=== PATIENT | male | born 1955 | race African-American/Black ===

== ENCOUNTER 2017-07-27 20:39 | Inpatient (IN) | payer MEDICARE, MEDICAID ==
[~2017-07-27] VITALS: Ht 185.4 cm; Wt 90.9 kg
[2017-07-27] MEDS: Nitroglycerin Subl 0.4mg tab SL PRN ×3 (21:02→21:17)
[2017-07-27] MEDS ORDERED: FUROSEMIDE40 MG ORAL (21:09)
[2017-07-27] MEDS ORDERED: HYDRALAZINE HC100 MG ORAL (21:09)
[2017-07-27] MEDS ORDERED: ATORVASTATIN CA80 MG ORAL (21:09)
[2017-07-27] MEDS ORDERED: DIOVAN80 MG ORAL (21:09)
[2017-07-27] MEDS ORDERED: NEPHROVITE1 TAB ORAL (21:09)
[2017-07-27] MEDS ORDERED: SENNA8.6 M2 PO (21:09)
[2017-07-27] MEDS ORDERED: HUMULIN R100 UNIT/1 SUBQ (21:09)
[2017-07-27] MEDS ORDERED: MINERAL OIL EN133 ML RC (21:09)
[2017-07-27] MEDS ORDERED: NORCO 5-325 TA1 EACH ORAL (21:09)
[2017-07-27] MEDS ORDERED: RENVELA0.8 GM ORAL (21:09)
[2017-07-27] MEDS ORDERED: NORVASC10 MG ORAL (21:09)
[2017-07-27] MEDS ORDERED: DULCOLAX10 MG RC (21:09)
[2017-07-27] MEDS ORDERED: ACETAMINOPHEN325 M1 ORAL (21:09)
[2017-07-27] MEDS ORDERED: METOPROLOL TART50 MG ORAL (21:09)
[2017-07-27] MEDS ORDERED: VITAMIN D400 INTLU ORAL (21:09)
[2017-07-27] MEDS ORDERED: SORBITOL 70%30 ML PO (21:09)
[2017-07-27 21:18] VITALS: BP 165/93
[2017-07-27 21:30] LABS: BASOPHILS % (AUTO) 0.9 % (0.0-2.0); EOSINOPHILS % (AUTO) 0.3 % (0.0-3.0); HEMATOCRIT 25.5 % (42.0-52.0); HEMOGLOBIN 8.1 G/DL (14.2-18.0); MEAN CORPUSCULAR VOLUME 88 FL (80-99); MONOCYTES % (AUTO) 5.3 % (1.0-10.0); NEUTROPHILS % (AUTO) 82.5 % (45.0-75.0); PLATELET COUNT 305 K/UL (150-450); RED BLOOD COUNT 2.88 M/UL (4.70-6.10); RED CELL DISTRIBUTION WIDTH 19.3 % (11.6-14.8)
[2017-07-27] MEDS ORDERED: cefTRIAXone 1 GM in NS 55 ML IVPB ONE (21:30)
[2017-07-27 21:43] LABS: ANION GAP 13 mmol/L (5-15); BLOOD UREA NITROGEN 102 mg/dL (7-18); CALCIUM 8.3 MG/DL (8.5-10.1); CARBON DIOXIDE 26 MMOL/L (21-32); CHLORIDE 93 MMOL/L (98-107); CREATININE 7.4 MG/DL (0.55-1.30); POTASSIUM 5.8 MMOL/L (3.5-5.1); SODIUM 132 MMOL/L (136-145)
[2017-07-27] MEDS ORDERED: Azithromycin 500 MG in D5W 275 ML IVPB ONE (21:45)
[2017-07-27 21:56] LABS: ALANINE AMINOTRANSFERASE 58 U/L (12-78); ALBUMIN 2.2 G/DL (3.4-5.0); ALBUMIN/GLOBULIN RATIO 0.4 (1.0-2.7); ALKALINE PHOSPHATASE 1144 U/L (46-116); ASPARTATE AMINO TRANSFERASE 81 U/L (15-37); BILIRUBIN,TOTAL 0.8 MG/DL (0.2-1.0); CKMB 2.4 NG/ML (0.0-3.6); CREATINE KINASE 148 U/L (26-308); PHOSPHORUS 6.8 MG/DL (2.5-4.9)
[2017-07-27] MEDS ORDERED: Sodium Polystyrene Sulfonate 15gm Powder ORAL ONE (22:00)
[2017-07-27] MEDS ORDERED: Azithromycin 500mg Inj IV ONE (22:33)
--- NOTE | 2017-07-27 23:09 | Emergency Room Report ---
History of Present Illness General Chief Complaint: Dyspnea/Respdistress Source: Medical Record Present Illness HPI Patient is a 61-year-old male with present after increased shortness of breath. Patient gradual onset of symptoms patient stated that he missed dialysis. Patient noted have increased difficulty with respirations. Patient had prior history of end-stage renal disease as well as multiple other medical problems. Allergies: Coded Allergies: NSAIDS (NON-STEROIDAL ANTI-INFLAMMA (Verified Allergy, Unknown, 07/27/17) Patient History Past Medical History: see triage record Reviewed Nursing Documentation: PMH: Agreed, PSxH: Agreed Nursing Documentation-PMH Hx Diabetes: Yes Hx Dialysis: Yes - MWF, ESRD Physical Exam Vital Signs Date Time Temp Pulse Resp B/P (MAP) Pulse Ox O2 Delivery O2 Flow Rate FiO2 07/27/17 20:30 98.7 94 22 170/98 98 Non-Rebreather 15.0 98.8 07/27/17 21:00 100 Sp02 EP Interpretation: reviewed, normal General Appearance: normal inspection, alert, GCS 15, severe distress Head: atraumatic ENT: normal ENT inspection, hearing grossly normal, normal voice Neck: normal inspection, full range of motion, supple, no bony tend Respiratory: no retraction, respiratory distress, rhonchi Cardiovascular #1: regular rate, rhythm, edema Gastrointestinal: normal inspection, normal bowel sounds, non tender, soft, no guarding, no hernia Genitourinary: no CVA tenderness Musculoskeletal: normal inspection, back normal, swelling - amputation Neurologic: normal inspection, alert, responsive, speech normal Psychiatric: normal inspection, judgement/insight normal, mood/affect normal Skin: other - discoloration to left hand Procedures Critical Care Time Critical Care Time Patient had a critical medical condition which untreated could potentially result in life or limb threatening injury. Total critical care time excluding procedures approximately 45 minutes. Medical Decision Making Diagnostic Impression: Primary Impression: Respiratory distress Additional Impressions: Hyperkalemia ESRD (end stage renal disease) Pneumonia Fluid overload ER Course Patient presented for shortness of breath. Differential included but was not limited to anemia, pneumonia, pneumothorax, myocardial infarction, pericardial effusion, congestive heart failure, acidosis. Because of complexity of patient' s case laboratory testing and imaging studies were ordered. Patient noted to have evidence of fluid overload. Chest x-ray 1 view interpreted by me showed right middle lobe infiltrate. Patient was given oral Kayexalate. Dr. Daniel Long was contacted for Dr. Howe for inpatient management. Dr. Rick Andersen was contacted for nephrology consult for emergent dialysis. Labs Test 07/27/17 20:41 07/27/17 20:50 Arterial Blood pH 7.466 (7.350-7.450) Arterial Blood Partial Pressure CO2 34.1 mmHg (35.0-45.0) Arterial Blood Partial Pressure O2 74.4 mmHg (75.0-100.0) Arterial Blood HCO3 24.0 mmol/L (22.0-26.0) Arterial Blood Oxygen Saturation 94.1 % (92.0-98.0) Arterial Blood Base Excess 0.5 Fernando Test Positive White Blood Count 6.0 K/UL (4.8-10.8) Red Blood Count 2.88 M/UL (4.70-6.10) Hemoglobin 8.1 G/DL (14.2-18.0) Hematocrit 25.5 % (42.0-52.0) Mean Corpuscular Volume 88 FL (80-99) Mean Corpuscular Hemoglobin 28.2 PG (27.0-31.0) Mean Corpuscular Hemoglobin Concent 31.9 G/DL (32.0-36.0) Red Cell Distribution Width 19.3 % (11.6-14.8) Platelet Count 305 K/UL (150-450) Mean Platelet Volume 7.3 FL (6.5-10.1) Neutrophils (%) (Auto) 82.5 % (45.0-75.0) Lymphocytes (%) (Auto) 11.0 % (20.0-45.0) Monocytes (%) (Auto) 5.3 % (1.0-10.0) Eosinophils (%) (Auto) 0.3 % (0.0-3.0) Basophils (%) (Auto) 0.9 % (0.0-2.0) Sodium Level 132 MMOL/L (136-145) Potassium Level 5.8 MMOL/L (3.5-5.1) Chloride Level 93 MMOL/L (98-107) Carbon Dioxide Level 26 MMOL/L (21-32) Anion Gap 13 mmol/L (5-15) Blood Urea Nitrogen 102 mg/dL (7-18) Creatinine 7.4 MG/DL (0.55-1.30) Estimat Glomerular Filtration Rate 9.1 mL/min (>60) Glucose Level 76 MG/DL (74-106) Lactic Acid Level 1.00 mmol/L (0.66-2.22) Calcium Level 8.3 MG/DL (8.5-10.1) Phosphorus Level 6.8 MG/DL (2.5-4.9) Magnesium Level 2.8 MG/DL (1.8-2.4) Total Bilirubin 0.8 MG/DL (0.2-1.0) Aspartate Amino Transf (AST/SGOT) 81 U/L (15-37) Alanine Aminotransferase (ALT/SGPT) 58 U/L (12-78) Alkaline Phosphatase 1144 U/L (46-116) Total Creatine Kinase 148 U/L (26-308) Creatine Kinase MB 2.4 NG/ML (0.0-3.6) Creatine Kinase MB Relative Index 1.6 Troponin I 0.067 ng/mL (0.000-0.056) Pro-B-Type Natriuretic Peptide > 84770 pg/mL (0-125) Total Protein 8.0 G/DL (6.4-8.2) Albumin 2.2 G/DL (3.4-5.0) Globulin 5.8 g/dL Albumin/Globulin Ratio 0.4 (1.0-2.7) EKG Diagnostic Results Rate: normal Rhythm: NSR ST Segments: no acute changes Last Vital Signs Date Time Temp Pulse Resp B/P (MAP) Pulse Ox O2 Delivery O2 Flow Rate FiO2 07/27/17 21:28 100 07/27/17 21:18 98.8 79 23 165/93 100 Bi-pap 98.8 07/27/17 21:18 15.0 Status: unchanged Disposition: ADMITTED INPATIENT Referrals: NON PHYSICIAN (PCP) Joey Chacon Jul 27, 2017 23:09
[2017-07-27] MEDS ORDERED: Albuterol/Ipratropium 3ml neb HHN PRN (23:45)
[2017-07-27] MEDS ORDERED: Zolpidem 5mg tab ORAL PRN (23:45)
[2017-07-27] MEDS ORDERED: Miralax 17gm pkt ORAL PRN (23:45)
[2017-07-27] MEDS ORDERED: Piperacillin/Tazobactam 3.375 GM in NS 110 ML IVPB ONE (23:45)
[2017-07-27] MEDS ORDERED: Mylanta II UD 30ml ORAL PRN (23:45)
[2017-07-27] MEDS ORDERED: Morphine Sulfate 2mg/ml Inj IVP PRN (23:45)
[2017-07-27 23:50] VITALS: BP 131/85
[2017-07-28] VITALS (13 sets, daily range): BP systolic 148–175; BP diastolic 85–99
[2017-07-28 06:11] LABS: BASOPHILS % (AUTO) 1.4 % (0.0-2.0); EOSINOPHILS % (AUTO) 0.2 % (0.0-3.0); HEMATOCRIT 25.5 % (42.0-52.0); LYMPHOCYTES % (AUTO) 13.4 % (20.0-45.0); MEAN CORPUSCULAR VOLUME 88 FL (80-99); MONOCYTES % (AUTO) 3.7 % (1.0-10.0); NEUTROPHILS % (AUTO) 81.3 % (45.0-75.0); PLATELET COUNT 282 K/UL (150-450); RED BLOOD COUNT 2.89 M/UL (4.70-6.10); RED CELL DISTRIBUTION WIDTH 18.8 % (11.6-14.8); WHITE BLOOD COUNT 5.2 K/UL (4.8-10.8)
[2017-07-28] MEDS: NovoLOG Insulin Flexpen SUBQ SCH ×4 (06:30→21:21)
[2017-07-28 06:55] LABS: ALANINE AMINOTRANSFERASE 53 U/L (12-78); ALBUMIN/GLOBULIN RATIO 0.3 (1.0-2.7); ALKALINE PHOSPHATASE 1042 U/L (46-116); ANION GAP 13 mmol/L (5-15); ASPARTATE AMINO TRANSFERASE 81 U/L (15-37); BILIRUBIN,TOTAL 0.7 MG/DL (0.2-1.0); BLOOD UREA NITROGEN 108 mg/dL (7-18); CALCIUM 8.5 MG/DL (8.5-10.1); CARBON DIOXIDE 24 MMOL/L (21-32); CHLORIDE 92 MMOL/L (98-107); CHOLESTEROL 104 MG/DL (< 200); CREATININE 7.4 MG/DL (0.55-1.30); HDL CHOLESTEROL 63 MG/DL (40-60); POTASSIUM 5.9 MMOL/L (3.5-5.1); SODIUM 130 MMOL/L (136-145); TRIGLYCERIDES 55 MG/DL (30-150)
[2017-07-28] MEDS ORDERED: Sodium Polystyrene Sulfonate 15gm Powder PEG STA (07:24)
[2017-07-28] MEDS ORDERED: Calcium Gluconate 1gm/10ml vial IVP ONE (07:30)
[2017-07-28] MEDS ORDERED: Albuterol ud Inhalation HHN ONE (07:30)
[2017-07-28] MEDS: Renvela 800mg Pkt ORAL SCH ×3 (09:00→21:16)
[2017-07-28] MEDS ORDERED: Nephrovite tab (Rena-Vite) ORAL SCH (09:00)
[2017-07-28] MEDS ORDERED: Heparin 5000 units/ml inj SUBQ SCH (09:00)
[2017-07-28] MEDS ORDERED: Metoprolol Succinate XL 50mg tab ORAL ONE (09:30)
--- NOTE | 2017-07-28 10:42 | Wound Care Consultation ---
Wound Assessment Wound Assessment #1: Wound Number: 1 Wound Present on Admission: Yes New Wound: No Status Change of Wound: No Wound Location Body Site: sacral Wound Type: pressure ulcer Marley Test: Does not Marley Pressure Ulcer Stage: Unstageable - 4 Wound Thickness: Full Thickness Wound Length: 3.5 Wound Width: 2.5 Wound Depth: UTD Percent of Wound Bed Yellow/Wh: 100 Wound Drainage Description: Serosanguineous Wound Drainage Amount: Moderate Wound Drainage Odor: None/Absent Tissue Surrounding Wound: Macerated Wound General Appearance: Draining, Necrotic Wound Assessment #2: Wound Number: 2 Wound Present on Admission: Yes New Wound: No Status Change of Wound: No Wound Location Body Site Modif: right Wound Location Body Site: ischial tuberosity Wound Type: pressure ulcer Marley Test: Does not Marley Pressure Ulcer Stage: III - noted with scar tissue appearing Wound Thickness: Full Thickness Wound Length: 2.0 Wound Width: 1.0 Wound Depth: 0.2 Percent of Wound [place]/Red: 95 Percent of Wound Bed Yellow/Wh: 5 Wound Drainage Description: Serosanguineous Wound Drainage Amount: Scant Wound Drainage Odor: None/Absent Tissue Surrounding Wound: Macerated Wound General Appearance: Reddened Wound Assessment #3: Wound Number: 3 Wound Present on Admission: Yes New Wound: No Status Change of Wound: No Wound Location Body Site Modif: right Wound Location Body Site: other - stump BKA Wound Type: scab - thick scattered scabs on stump along surgical line. Marley Test: Does not Marley Percent of Wound Black/Brown: 100 - scattered Wound Drainage Amount: None Wound Drainage Odor: None/Absent Tissue Surrounding Wound: dry thick scattered scabs Wound Assessment #4: Wound Number: 4 Wound Present on Admission: Yes New Wound: No Status Change of Wound: No Wound Location Body Site Modif: left, lower, anterior Wound Location Body Site: leg Wound Type: scab Marley Test: Does not Marley Wound Thickness: Partial Thickness Wound Length: 2.0 Wound Width: 1.0 Percent of Wound Black/Brown: 100 Wound Drainage Amount: None Wound Drainage Odor: None/Absent Tissue Surrounding Wound: Intact Wound General Appearance: Blackened Wound Assessment #5: Wound Number: 5 Wound Present on Admission: Yes New Wound: No Status Change of Wound: No Wound Location Body Site Modif: left Wound Location Body Site: foot - 1st,2nd,3rd,4th,5th toe extending to plantar of foot Marley Test: Does not Marley Vascular Issues: gangrene Wound Thickness: Full Thickness Percent of Wound Black/Brown: 100 Wound Drainage Description: Serosanguineous Wound Drainage Amount: Scant Wound Drainage Odor: None/Absent Tissue Surrounding Wound: Erythemic Wound General Appearance: Blackened, Necrotic Wound Assessment #6: Wound Number: 6 Wound Present on Admission: Yes New Wound: No Status Change of Wound: No Wound Location Body Site Modif: left Wound Location Body Site: finger - 4th Marley Test: Does not Marley Vascular Issues: gangrene Wound Thickness: Full Thickness Percent of Wound Black/Brown: 100 Wound Drainage Amount: None Wound Drainage Odor: None/Absent Tissue Surrounding Wound: Indurated Wound General Appearance: Blackened, Necrotic Wound Comment #1 Sacral unstageable/4 pressure ulcer #2 right ischial tuberosity stage 3 resolving with scar tissue #3 right BKA scattered scabs . #4 left anterior lower leg scab. #5 Left foot 1st,2nd,3rd,4th,5th toe extending to plantar of foot gangrene #6 left 4th finger gangrene -FOLLOW UP WITH ATTENDING MD FOR POSSIBLE CONSULT WITH PODIATRY/SURGICAL CONSULT AND FURTHER WOUND CARE RECOMMENDATIONS RECOMMENDATIONS. -Local wound care as ordered per protocol. -Turn and reposition. -Apply low air loss mattress for wound and skin management. -Optimize nutrition -Offload affected sites. -Keep clean and dry -Assess and notify MD for any further change of condition to skin noted. MATEUS SANCHEZ Jul 28, 2017 10:42
--- NOTE | 2017-07-28 10:57 | Diagnostic Imaging Report ---
Indication: Shortness of breath Technique: One view of the chest Comparison: none Findings: Infiltrate is seen throughout the right midlung. The heart is borderline enlarged. The bilateral pleural spaces and left lung are clear. There is questionably some focal pleural thickening in the left midlung periphery. Impression: Right mid lung infiltrate, likely pneumonia Borderline cardiomegaly
--- NOTE | 2017-07-28 11:34 | Consultation ---
History of Present Illness General Date patient seen: Jul 28, 2017 Chief Complaint: Dyspnea/Respdistress Present Illness HPI 61-year-old male with hx of End stage renal disease, DM, Right AKA, group home resident presented to ER with CC of increased shortness of breath wtih gradual onset of symptoms. He apparently missed dialysis. Pt was put on BIPAP in ER and transferred to ICU. Pt was found to have RML infiltrate. Currently pt is off bipap and c/o of mild shortness of breath. Allergies: Coded Allergies: NSAIDS (NON-STEROIDAL ANTI-INFLAMMA (Verified Allergy, Unknown, 07/27/17) Medication History Scheduled Amlodipine Besylate (Norvasc), 10 MG ORAL DAILY, (Reported) Atorvastatin Calcium* (Lipitor*), 80 MG ORAL BEDTIME, (Reported) Furosemide* (Lasix*), 40 MG ORAL TWICE A DAY, (Reported) Hydralazine Hcl* (Hydralazine Hcl*), 100 MG ORAL EVERY 8 HOURS, (Reported) Metoprolol Tartrate* (Metoprolol Tartrate*), 50 MG ORAL EVERY 12 HOURS, ( Reported) Sevelamer Carbonate* (Renvela*), 800 MG ORAL THREE TIMES A DAY, (Reported) Valsartan (Diovan), 160 MG ORAL DAILY, (Reported) Vitamin B Cmplx/Vit C/Folic AC (Nephro-Ambar Tablet), 1 TAB ORAL DAILY, (Reported ) Vitamin D (Vitamin D3), 1,000 UNITS ORAL DAILY, (Reported) Scheduled PRN Acetaminophen* (Acetaminophen 325MG Tablet*), 650 MG ORAL Q4H PRN for For Pain, (Reported) Bisacodyl (Dulcolax), 10 MG RC for Constipation, (Reported) Hydrocodone Bit/Acetaminophen 5-325* (Mars 5-325*), 1 TAB ORAL Q4H PRN for For Pain, (Reported) Miscellaneous Medications Insulin Regular, Human (Humulin R), 0 SUBQ, (Reported) Mineral Oil (Mineral Oil Enema), 133 ML RC, (Reported) Sennosides (Senna), 8.6 MG PO, (Reported) Sorbitol (Sorbitol), Unknown Dose PO, (Reported) Patient History Healthcare decision maker Resuscitation status Advanced Directive on File Past Medical/Surgical History Past Medical/Surgical History: (1) Diabetes mellitus (2) History of right above knee amputation (3) ESRD (end stage renal disease) Review of Systems All Other Systems: negative except mentioned in HPI Physical Exam General Appearance: WD/WN Lines, tubes and drains: peripheral HEENT: normocephalic, atraumatic Neck: non-tender, normal alignment Respiratory/Chest: chest wall non-tender, lungs clear Cardiovascular/Chest: normal peripheral pulses, normal rate Abdomen: normal bowel sounds, non tender Genitourinary/Rectal: normal genital exam, normal rectal exam Last 24 Hour Vital Signs Date Time Temp Pulse Resp B/P (MAP) Pulse Ox O2 Delivery O2 Flow Rate FiO2 07/28/17 11:00 75 18 148/91 100 Bi-pap 15.0 100 07/28/17 10:00 75 21 163/86 100 Bi-pap 15.0 100 07/28/17 09:57 76 165/99 07/28/17 09:26 77 21 100 Full Face 100 07/28/17 09:00 15.0 100 07/28/17 09:00 76 165/99 07/28/17 09:00 98.2 77 20 165/99 100 Bi-pap 15.0 100 98.2 07/28/17 08:40 98.0 76 24 157/85 100 Bi-pap 15.0 100 07/28/17 08:00 98.8 76 24 157/85 100 Bi-pap 15.0 100 98.8 07/28/17 07:38 72 19 100 Bi-pap 100 07/28/17 07:37 72 19 Bi-pap 100 07/28/17 06:45 73 23 100 Full Face 100 07/28/17 06:07 71 21 171/91 100 Bi-pap 100 07/28/17 04:00 98.8 69 20 159/87 100 15.0 100 98.8 07/28/17 02:58 68 29 100 Full Face 100 07/28/17 01:10 98.8 69 20 157/90 100 Bi-pap 15.0 100 98.8 07/28/17 01:08 69 27 100 Full Face 100 07/27/17 23:50 75 23 131/85 100 Bi-pap 100 07/27/17 23:07 76 21 100 Full Face 100 07/27/17 21:28 100 07/27/17 21:18 98.8 79 23 165/93 100 Bi-pap 100 98.8 07/27/17 21:18 79 18 Bi-pap 15.0 100 07/27/17 21:17 165/93 07/27/17 21:08 165/98 07/27/17 21:02 163/86 07/27/17 21:00 79 17 100 Full Face 100 07/27/17 20:30 98.7 94 22 170/98 98 Non-Rebreather 15.0 98.8 Intake and Output 07/27/17 07/28/17 19:00 07:00 Output Total 0 ml Balance 0 ml Output Urine Total 0 ml Laboratory Tests Test 07/27/17 20:41 07/27/17 20:50 07/28/17 05:20 Arterial Blood pH 7.466 (7.350-7.450) Arterial Blood Partial Pressure CO2 34.1 mmHg (35.0-45.0) L Arterial Blood Partial Pressure O2 74.4 mmHg (75.0-100.0) L Arterial Blood HCO3 24.0 mmol/L (22.0-26.0) Arterial Blood Oxygen Saturation 94.1 % (92.0-98.0) Arterial Blood Base Excess 0.5 Fernando Test Positive White Blood Count 6.0 K/UL (4.8-10.8) 5.2 K/UL (4.8-10.8) Red Blood Count 2.88 M/UL (4.70-6.10) L 2.89 M/UL (4.70-6.10) L Hemoglobin 8.1 G/DL (14.2-18.0) L 8.0 G/DL (14.2-18.0) L Hematocrit 25.5 % (42.0-52.0) L 25.5 % (42.0-52.0) L Mean Corpuscular Volume 88 FL (80-99) 88 FL (80-99) Mean Corpuscular Hemoglobin 28.2 PG (27.0-31.0) 27.8 PG (27.0-31.0) Mean Corpuscular Hemoglobin Concent 31.9 G/DL (32.0-36.0) L 31.4 G/DL (32.0-36.0) L Red Cell Distribution Width 19.3 % (11.6-14.8) H 18.8 % (11.6-14.8) H Platelet Count 305 K/UL (150-450) 282 K/UL (150-450) Mean Platelet Volume 7.3 FL (6.5-10.1) 8.0 FL (6.5-10.1) Neutrophils (%) (Auto) 82.5 % (45.0-75.0) H 81.3 % (45.0-75.0) H Lymphocytes (%) (Auto) 11.0 % (20.0-45.0) L 13.4 % (20.0-45.0) L Monocytes (%) (Auto) 5.3 % (1.0-10.0) 3.7 % (1.0-10.0) Eosinophils (%) (Auto) 0.3 % (0.0-3.0) 0.2 % (0.0-3.0) Basophils (%) (Auto) 0.9 % (0.0-2.0) 1.4 % (0.0-2.0) Sodium Level 132 MMOL/L (136-145) L 130 MMOL/L (136-145) L Potassium Level 5.8 MMOL/L (3.5-5.1) H 5.9 MMOL/L (3.5-5.1) H Chloride Level 93 MMOL/L (98-107) L 92 MMOL/L (98-107) L Carbon Dioxide Level 26 MMOL/L (21-32) 24 MMOL/L (21-32) Anion Gap 13 mmol/L (5-15) 13 mmol/L (5-15) Blood Urea Nitrogen 102 mg/dL (7-18) H 108 mg/dL (7-18) H Creatinine 7.4 MG/DL (0.55-1.30) H 7.4 MG/DL (0.55-1.30) H Estimat Glomerular Filtration Rate 9.1 mL/min (>60) 9.1 mL/min (>60) Glucose Level 76 MG/DL (74-106) 80 MG/DL (74-106) Lactic Acid Level 1.00 mmol/L (0.66-2.22) Calcium Level 8.3 MG/DL (8.5-10.1) L 8.5 MG/DL (8.5-10.1) Phosphorus Level 6.8 MG/DL (2.5-4.9) H Magnesium Level 2.8 MG/DL (1.8-2.4) H Total Bilirubin 0.8 MG/DL (0.2-1.0) 0.7 MG/DL (0.2-1.0) Aspartate Amino Transf (AST/SGOT) 81 U/L (15-37) H 81 U/L (15-37) H Alanine Aminotransferase (ALT/SGPT) 58 U/L (12-78) 53 U/L (12-78) Alkaline Phosphatase 1144 U/L (46-116) H 1042 U/L (46-116) H Total Creatine Kinase 148 U/L (26-308) Creatine Kinase MB 2.4 NG/ML (0.0-3.6) Creatine Kinase MB Relative Index 1.6 Troponin I 0.067 ng/mL (0.000-0.056) Pro-B-Type Natriuretic Peptide > 12515 pg/mL (0-125) H Total Protein 8.0 G/DL (6.4-8.2) 8.1 G/DL (6.4-8.2) Albumin 2.2 G/DL (3.4-5.0) L 2.0 G/DL (3.4-5.0) L Globulin 5.8 g/dL 6.1 g/dL Albumin/Globulin Ratio 0.4 (1.0-2.7) L 0.3 (1.0-2.7) L Hemoglobin A1c 7.5 % (4.3-6.0) H Triglycerides Level 55 MG/DL (30-150) Cholesterol Level 104 MG/DL (< 200) LDL Cholesterol 37 mg/dL (<100) HDL Cholesterol 63 MG/DL (40-60) H Cholesterol/HDL Ratio 1.7 (3.3-4.4) L Thyroid Stimulating Hormone (TSH) 12.163 uiU/mL (0.358-3.740) Microbiology Date/Time Source Procedure Growth Status 07/27/17 22:03 Nasal Nares Influenza Types A,B Antigen (NILA) - Final Complete Height (Feet): 6 Height (Inches): 1.00 Weight (Pounds): 180 Medications Current Medications Medications (Trade) Dose Ordered Sig/Arlet Route PRN Reason Start Time Stop Time Status Last Admin Dose Admin Acetaminophen (Tylenol) 650 mg Q4H PRN ORAL fever 07/27/17 23:45 08/26/17 23:44 Al Hydroxide/Mg Hydroxide (Mylanta II) 30 ml Q6H PRN ORAL dyspepsia 07/27/17 23:45 08/26/17 23:44 Albuterol/ Ipratropium (Albuterol/ Ipratropium) 3 ml Q6HRT PRN HHN dyspnea 07/27/17 23:45 08/01/17 23:44 Amlodipine Besylate (Norvasc) 10 mg DAILY ORAL 07/28/17 09:00 08/27/17 08:59 Atorvastatin Calcium (Lipitor) 80 mg BEDTIME ORAL 07/28/17 21:00 08/27/17 20:59 Bisacodyl (Dulcolax) 10 mg DAILY PRN RECTAL Constipation 07/27/17 23:45 08/26/17 23:44 Dextrose (Dextrose 50%) STAT PRN IV Hypoglycemia 07/27/17 23:45 08/26/17 23:44 Epoetin [place] (Procrit (for ESRD on dialysis)) 7,000 units MON-WED-FRI SUBQ 07/28/17 21:00 08/27/17 20:59 Heparin Sodium (Porcine) (Heparin 5000 units/ml) 5,000 units EVERY 12 HOURS SUBQ 07/28/17 09:00 08/27/17 08:59 07/28/17 09:00 Heparin Sodium (Porcine) (Heparin Sod 1000 units/ml 10ml) 2,000 unit ONCE ONCE IV 07/28/17 23:15 07/28/17 23:16 Insulin Aspart (NovoLOG) BEFORE MEALS AND HS SUBQ 07/28/17 06:30 08/27/17 06:29 Morphine Sulfate (Morphine Sulfate) 1 mg Q4H PRN IVP For Pain 07/27/17 23:45 08/03/17 23:44 07/28/17 11:26 Nitroglycerin (Ntg) 0.4 mg Q5M PRN SL Prn Chest Pain 07/27/17 21:00 08/26/17 20:59 07/27/17 21:17 Ondansetron HCl (Zofran) 4 mg Q6H PRN IVP Nausea & Vomiting 07/27/17 23:45 08/26/17 23:44 Piperacillin Sod/ Tazobactam Sod 2.25 gm/Dextrose 55 ml @ 110 mls/hr Q8HR IVPB 07/28/17 14:00 08/02/17 13:59 UNV Polyethylene Glycol (Miralax) 17 gm HSPRN PRN ORAL Constipation 07/27/17 23:45 08/26/17 23:44 Sevelamer Carbonate (Renvela) 800 mg THREE TIMES A DAY ORAL 07/28/17 09:00 08/27/17 08:59 07/28/17 09:00 Sodium Chloride 1,000 ml @ 500 mls/hr Q2H PRN IVLG sbp<90 during hd 07/28/17 23:02 08/27/17 23:01 Vitamin B Complex/ Vit C/Folic Acid (Nephrovite) 1 tab DAILY ORAL 07/28/17 09:00 08/27/17 08:59 07/28/17 09:00 Zolpidem Tartrate (Ambien) 5 mg HSPRN PRN ORAL Insomnia 07/27/17 23:45 08/03/17 23:44 Assessment/Plan Problem List: (1) Acute respiratory failure ICD Codes: J96.00 - Acute respiratory failure, unspecified whether with hypoxia or hypercapnia SNOMED: 30255233 (2) Pneumonia ICD Codes: J18.9 - Pneumonia, unspecified organism SNOMED: 816666665 (3) ESRD (end stage renal disease) ICD Codes: N18.6 - End stage renal disease SNOMED: 82802930 (4) Diabetes mellitus ICD Codes: E11.9 - Type 2 diabetes mellitus without complications SNOMED: 67213438 (5) History of right above knee amputation ICD Codes: Z89.611 - Acquired absence of right leg above knee SNOMED: 116624917 Assessment/Plan titrate bipap IV abx check cultures chest pt check sputum check electrolytes sliding scale dvt prophylaxis symptomatic treatment [place] LYNN Jul 28, 2017 11:34
[2017-07-28] MEDS ORDERED: Piperacillin/Tazobactam 2.25 GM in NS 55 ML IVPB SCH ×2 (13:00→16:00)
--- NOTE | 2017-07-28 14:56 | History and Physical ---
History of Present Illness General Date patient seen: Jul 28, 2017 Time patient seen: 14:55 Reason for Hospitalization: Dyspnea/Respdistress Present Illness HPI 61y/o male with pmh of HTN, HLD, ESRD on HD (MWF), DM2 who presents with increasing SOB. Pt states that has been having a bad cough and SOB for the past few days. Since he wasn't feeling well he missed his last dialysis on Friday. He had worsening SOB yesterday and thus presented to ER. C/o subjective fevers/ chills. Denies n/v, d/c, chest pain, abd pain. In ED pt noted to be hypoxic to 70% and was placed on NRB and then BiPAP. CXR w / concern for pneumonia. Given ceftriaxone and azithro. Labs noteable for hyponatremia and hyperkalemia. Renal consulted for urgent dialysis. Allergies: Coded Allergies: NSAIDS (NON-STEROIDAL ANTI-INFLAMMA (Verified Allergy, Unknown, 07/27/17) Medication History Scheduled Amlodipine Besylate (Norvasc), 10 MG ORAL DAILY, (Reported) Atorvastatin Calcium* (Lipitor*), 80 MG ORAL BEDTIME, (Reported) Furosemide* (Lasix*), 40 MG ORAL TWICE A DAY, (Reported) Hydralazine Hcl* (Hydralazine Hcl*), 100 MG ORAL EVERY 8 HOURS, (Reported) Metoprolol Tartrate* (Metoprolol Tartrate*), 50 MG ORAL EVERY 12 HOURS, ( Reported) Sevelamer Carbonate* (Renvela*), 800 MG ORAL THREE TIMES A DAY, (Reported) Valsartan (Diovan), 160 MG ORAL DAILY, (Reported) Vitamin B Cmplx/Vit C/Folic AC (Nephro-Ambar Tablet), 1 TAB ORAL DAILY, (Reported ) Vitamin D (Vitamin D3), 1,000 UNITS ORAL DAILY, (Reported) Scheduled PRN Acetaminophen* (Acetaminophen 325MG Tablet*), 650 MG ORAL Q4H PRN for For Pain, (Reported) Bisacodyl (Dulcolax), 10 MG RC for Constipation, (Reported) Hydrocodone Bit/Acetaminophen 5-325* ([place] 5-325*), 1 TAB ORAL Q4H PRN for For Pain, (Reported) Miscellaneous Medications Insulin Regular, Human (Humulin R), 0 SUBQ, (Reported) Mineral Oil (Mineral Oil Enema), 133 ML RC, (Reported) Sennosides (Senna), 8.6 MG PO, (Reported) Sorbitol (Sorbitol), Unknown Dose PO, (Reported) Patient History History Provided By: Patient, Medical Record, EMS Healthcare decision maker Resuscitation status Full Code Advanced Directive on File Past Medical/Surgical History Past Medical/Surgical History: (1) Insulin dependent type 2 diabetes mellitus (2) HTN (hypertension) (3) HLD (hyperlipidemia) (4) ESRD on hemodialysis (5) History of right above knee amputation (6) Gangrene of left foot (7) Diabetic nephropathy Family History Family History: Patient reports no known family medical history. Social History Social History: (1) Lives at [facility] Review of Systems Constitutional: Reports: fever, malaise, weakness Eye: Reports: no symptoms ENT: Reports: no symptoms Respiratory: Reports: cough, shortness of breath Cardiovascular: Reports: no symptoms Gastrointestinal: Reports: no symptoms Genitourinary: Reports: no symptoms Musculoskeletal: Reports: no symptoms Skin: Reports: no symptoms Psychiatric: Reports: no symptoms Neurological: Reports: no symptoms Endocrine: Reports: no symptoms Hematologic/Lymphatic: Reports: no symptoms Physical Exam Physical Exam Narrative General Appearance: normal inspection, alert, GCS 15, severe distress Head: atraumatic ENT: normal ENT inspection, hearing grossly normal, normal voice Neck: normal inspection, full range of motion, supple, no bony tend Respiratory:+rhonchi b/l Cardiovascular: regular rate, rhythm, edema Gastrointestinal: normal inspection, normal bowel sounds, non tender, soft, no guarding, no hernia Genitourinary: no CVA tenderness Musculoskeletal: normal inspection, back normal, swelling - amputation Neurologic: normal inspection, alert, responsive, speech normal Ext: +R AKA, L foot with 1st-5th w/ e/o gangrene extending to plantar foot Last 24 Hour Vital Signs Date Time Temp Pulse Resp B/P (MAP) Pulse Ox O2 Delivery O2 Flow Rate FiO2 07/28/17 13:59 77 18 154/87 100 Bi-pap 15.0 100 07/28/17 13:29 77 21 100 Full Face 100 07/28/17 13:00 79 18 175/93 100 Bi-pap 15.0 100 07/28/17 13:00 Bi-pap 100 07/28/17 13:00 85 22 165/95 100 Bi-pap 15.0 100 07/28/17 12:00 15.0 100 07/28/17 12:00 82 07/28/17 12:00 82 22 175/93 100 Bi-pap 15.0 100 07/28/17 11:00 75 18 148/91 100 Bi-pap 15.0 100 07/28/17 10:00 75 21 163/86 100 Bi-pap 15.0 100 07/28/17 10:00 Bi-pap 100 07/28/17 09:57 76 165/99 07/28/17 09:26 77 21 100 Full Face 100 07/28/17 09:00 15.0 100 07/28/17 09:00 76 165/99 07/28/17 09:00 98.2 77 20 165/99 100 Bi-pap 15.0 100 98.2 07/28/17 08:40 98.0 76 24 157/85 100 Bi-pap 15.0 100 07/28/17 08:00 98.8 76 24 157/85 100 Bi-pap 15.0 100 98.8 07/28/17 07:38 72 19 100 Bi-pap 100 07/28/17 07:37 72 19 Bi-pap 100 07/28/17 06:45 73 23 100 Full Face 100 07/28/17 06:07 71 21 171/91 100 Bi-pap 100 07/28/17 04:00 98.8 69 20 159/87 100 15.0 100 98.8 07/28/17 02:58 68 29 100 Full Face 100 07/28/17 01:10 98.8 69 20 157/90 100 Bi-pap 15.0 100 98.8 07/28/17 01:08 69 27 100 Full Face 100 07/27/17 23:50 75 23 131/85 100 Bi-pap 100 07/27/17 23:07 76 21 100 Full Face 100 07/27/17 21:28 100 07/27/17 21:18 98.8 79 23 165/93 100 Bi-pap 100 98.8 07/27/17 21:18 79 18 Bi-pap 15.0 100 07/27/17 21:17 165/93 07/27/17 21:08 165/98 07/27/17 21:02 163/86 07/27/17 21:00 79 17 100 Full Face 100 07/27/17 20:30 98.7 94 22 170/98 98 Non-Rebreather 15.0 98.8 Intake and Output 07/27/17 07/28/17 19:00 07:00 Output Total 0 ml Balance 0 ml Output Urine Total 0 ml Laboratory Tests Test 07/27/17 20:41 07/27/17 20:50 07/28/17 05:20 07/28/17 13:30 Arterial Blood pH 7.466 (7.350-7.450) Arterial Blood Partial Pressure CO2 34.1 mmHg (35.0-45.0) L Arterial Blood Partial Pressure O2 74.4 mmHg (75.0-100.0) L Arterial Blood HCO3 24.0 mmol/L (22.0-26.0) Arterial Blood Oxygen Saturation 94.1 % (92.0-98.0) Arterial Blood Base Excess 0.5 Fernando Test Positive White Blood Count 6.0 K/UL (4.8-10.8) 5.2 K/UL (4.8-10.8) Red Blood Count 2.88 M/UL (4.70-6.10) L 2.89 M/UL (4.70-6.10) L Hemoglobin 8.1 G/DL (14.2-18.0) L 8.0 G/DL (14.2-18.0) L Hematocrit 25.5 % (42.0-52.0) L 25.5 % (42.0-52.0) L Mean Corpuscular Volume 88 FL (80-99) 88 FL (80-99) Mean Corpuscular Hemoglobin 28.2 PG (27.0-31.0) 27.8 PG (27.0-31.0) Mean Corpuscular Hemoglobin Concent 31.9 G/DL (32.0-36.0) L 31.4 G/DL (32.0-36.0) L Red Cell Distribution Width 19.3 % (11.6-14.8) H 18.8 % (11.6-14.8) H Platelet Count 305 K/UL (150-450) 282 K/UL (150-450) Mean Platelet Volume 7.3 FL (6.5-10.1) 8.0 FL (6.5-10.1) Neutrophils (%) (Auto) 82.5 % (45.0-75.0) H 81.3 % (45.0-75.0) H Lymphocytes (%) (Auto) 11.0 % (20.0-45.0) L 13.4 % (20.0-45.0) L Monocytes (%) (Auto) 5.3 % (1.0-10.0) 3.7 % (1.0-10.0) Eosinophils (%) (Auto) 0.3 % (0.0-3.0) 0.2 % (0.0-3.0) Basophils (%) (Auto) 0.9 % (0.0-2.0) 1.4 % (0.0-2.0) Sodium Level 132 MMOL/L (136-145) L 130 MMOL/L (136-145) L Potassium Level 5.8 MMOL/L (3.5-5.1) H 5.9 MMOL/L (3.5-5.1) H Chloride Level 93 MMOL/L (98-107) L 92 MMOL/L (98-107) L Carbon Dioxide Level 26 MMOL/L (21-32) 24 MMOL/L (21-32) Anion Gap 13 mmol/L (5-15) 13 mmol/L (5-15) Blood Urea Nitrogen 102 mg/dL (7-18) H 108 mg/dL (7-18) H Creatinine 7.4 MG/DL (0.55-1.30) H 7.4 MG/DL (0.55-1.30) H Estimat Glomerular Filtration Rate 9.1 mL/min (>60) 9.1 mL/min (>60) Glucose Level 76 MG/DL (74-106) 80 MG/DL (74-106) Lactic Acid Level 1.00 mmol/L (0.66-2.22) Calcium Level 8.3 MG/DL (8.5-10.1) L 8.5 MG/DL (8.5-10.1) Phosphorus Level 6.8 MG/DL (2.5-4.9) H Magnesium Level 2.8 MG/DL (1.8-2.4) H Total Bilirubin 0.8 MG/DL (0.2-1.0) 0.7 MG/DL (0.2-1.0) Aspartate Amino Transf (AST/SGOT) 81 U/L (15-37) H 81 U/L (15-37) H Alanine Aminotransferase (ALT/SGPT) 58 U/L (12-78) 53 U/L (12-78) Alkaline Phosphatase 1144 U/L (46-116) H 1042 U/L (46-116) H Total Creatine Kinase 148 U/L (26-308) Creatine Kinase MB 2.4 NG/ML (0.0-3.6) Creatine Kinase MB Relative Index 1.6 Troponin I 0.067 ng/mL (0.000-0.056) Pro-B-Type Natriuretic Peptide > 47888 pg/mL (0-125) H Total Protein 8.0 G/DL (6.4-8.2) 8.1 G/DL (6.4-8.2) Albumin 2.2 G/DL (3.4-5.0) L 2.0 G/DL (3.4-5.0) L Globulin 5.8 g/dL 6.1 g/dL Albumin/Globulin Ratio 0.4 (1.0-2.7) L 0.3 (1.0-2.7) L Hemoglobin A1c 7.5 % (4.3-6.0) H Triglycerides Level 55 MG/DL (30-150) Cholesterol Level 104 MG/DL (< 200) LDL Cholesterol 37 mg/dL (<100) HDL Cholesterol 63 MG/DL (40-60) H Cholesterol/HDL Ratio 1.7 (3.3-4.4) L Thyroid Stimulating Hormone (TSH) 12.163 uiU/mL (0.358-3.740) Hepatitis A IgM Antibody Pending Hepatitis B Surface Antigen Pending Hepatitis B Core IgM Antibody Pending Hepatitis C Antibody Pending Microbiology Date/Time Source Procedure Growth Status 07/27/17 22:03 Nasal Nares Influenza Types A,B Antigen (NILA) - Final Complete Height (Feet): 6 Height (Inches): 1.00 Weight (Pounds): 180 Medications Current Medications Medications (Trade) Dose Ordered Sig/Arlet Route PRN Reason Start Time Stop Time Status Last Admin Dose Admin Acetaminophen (Tylenol) 650 mg Q4H PRN ORAL fever 07/27/17 23:45 08/26/17 23:44 Al Hydroxide/Mg Hydroxide (Mylanta II) 30 ml Q6H PRN ORAL dyspepsia 07/27/17 23:45 08/26/17 23:44 Albuterol/ Ipratropium (Albuterol/ Ipratropium) 3 ml Q6HRT PRN HHN dyspnea 07/27/17 23:45 08/01/17 23:44 Amlodipine Besylate (Norvasc) 10 mg DAILY ORAL 07/28/17 09:00 08/27/17 08:59 Atorvastatin Calcium (Lipitor) 80 mg BEDTIME ORAL 07/28/17 21:00 08/27/17 20:59 Bisacodyl (Dulcolax) 10 mg DAILY PRN RECTAL Constipation 07/27/17 23:45 08/26/17 23:44 Dextrose (Dextrose 50%) STAT PRN IV Hypoglycemia 07/27/17 23:45 08/26/17 23:44 Epoetin Mayito (Procrit (for ESRD on dialysis)) 7,000 units FRI-FRI-FRI SUBQ 07/28/17 21:00 08/27/17 20:59 Heparin Sodium (Porcine) (Heparin 5000 units/ml) 5,000 units EVERY 12 HOURS SUBQ 07/28/17 09:00 08/27/17 08:59 07/28/17 09:00 Heparin Sodium (Porcine) (Heparin Sod 1000 units/ml 10ml) 2,000 unit ONCE ONCE IV 07/28/17 23:15 07/28/17 23:16 Insulin Aspart (NovoLOG) BEFORE MEALS AND HS SUBQ 07/28/17 06:30 08/27/17 06:29 Morphine Sulfate (Morphine Sulfate) 1 mg Q4H PRN IVP For Pain 07/27/17 23:45 08/03/17 23:44 07/28/17 11:26 Nitroglycerin (Ntg) 0.4 mg Q5M PRN SL Prn Chest Pain 07/27/17 21:00 08/26/17 20:59 07/27/17 21:17 Ondansetron HCl (Zofran) 4 mg Q6H PRN IVP Nausea & Vomiting 07/27/17 23:45 08/26/17 23:44 Piperacillin Sod/ Tazobactam Sod 2.25 gm/Sodium Chloride 55 ml @ 110 mls/hr Q8H IVPB 07/28/17 16:00 08/04/17 15:59 Polyethylene Glycol (Miralax) 17 gm HSPRN PRN ORAL Constipation 07/27/17 23:45 08/26/17 23:44 Sevelamer Carbonate (Renvela) 800 mg THREE TIMES A DAY ORAL 07/28/17 09:00 08/27/17 08:59 07/28/17 09:00 Sodium Chloride 1,000 ml @ 500 mls/hr Q2H PRN IVLG sbp<90 during hd 07/28/17 23:02 08/27/17 23:01 Vitamin B Complex/ Vit C/Folic Acid (Nephrovite) 1 tab DAILY ORAL 07/28/17 09:00 08/27/17 08:59 07/28/17 09:00 Zolpidem Tartrate (Ambien) 5 mg HSPRN PRN ORAL Insomnia 07/27/17 23:45 08/03/17 23:44 Assessment/Plan Problem List: (1) Acute respiratory failure with hypoxia ICD Codes: J96.01 - Acute respiratory failure with hypoxia SNOMED: 66798685, 851341751 (2) HCAP (healthcare-associated pneumonia) ICD Codes: J18.9 - Pneumonia, unspecified organism SNOMED: 822202966 (3) Acute on chronic diastolic (congestive) heart failure ICD Codes: I50.33 - Acute on chronic diastolic (congestive) heart failure SNOMED: 29667564, 349843323 (4) Hyperkalemia ICD Codes: E87.5 - Hyperkalemia SNOMED: 17321318 (5) ESRD on hemodialysis ICD Codes: N18.6 - End stage renal disease; Z99.2 - Dependence on renal dialysis SNOMED: 03062844, 541330456 (6) HTN (hypertension) ICD Codes: I10 - Essential (primary) hypertension SNOMED: 30504386 (7) HLD (hyperlipidemia) ICD Codes: E78.5 - Hyperlipidemia, unspecified SNOMED: 03678839 (8) Insulin dependent type 2 diabetes mellitus Assessment & Plan: A1C 7.5 ICD Codes: E11.9 - Type 2 diabetes mellitus without complications; Z79.4 - skilled nursing (current) use of insulin SNOMED: 897035905 (9) Diabetic nephropathy ICD Codes: E11.21 - Type 2 diabetes mellitus with diabetic nephropathy SNOMED: 98100370, 777347089 (10) Gangrene of left foot ICD Codes: I96 - Gangrene, not elsewhere classified SNOMED: 84765428762044699 (11) History of right above knee amputation ICD Codes: Z89.611 - Acquired absence of right leg above knee SNOMED: 707793607 (12) Sacral unstageable/4 pressure ulcer (13) R ischial tuberosity stage 3 resolving with scar tissue (14) Left foot 1st-5th toe extending to plantar of foot gangrene (15) Left 4th finger gangrene (16) Hyponatremia ICD Codes: E87.1 - Hypo-osmolality and hyponatremia SNOMED: 89819571 Status: stable Assessment/Plan Admit to ICU Pulm, renal consulted Urgent HD ordered per renal Cont BiPAP and wean as tolerated Empiric zosyn for pneumonia F/u cultures Check TTE Surgery consulted given concern for gangrene of L foot Wound care Cont SNF meds Pain control, bowel regimen Supportive care DVT Prophylaxis: HSQ Code Status: Full Hospital Classification Declaration: Based on this initial evaluation, and depending on the patient's clinical course, I anticipate that this patient will require hospitalization for 2-3 days for HCAP, hypoxia and close respiratory/ hemodynamic monitoring. Disposition: Once the patient is stable to leave the hospital, I anticipate the patient will likely be discharged to the following environment: back to SNF I spent 72 minutes on this patient's case, and >50% was dedicated to counseling and/or care coordination. Discussed with patient/family, nursing staff, SW/KINJAL, pulm, renal regarding clinical status, treatment course, and disposition planning. Time of note may not reflect time of encounter. Maxwell Lin M.D. Jul 28, 2017 14:55
[2017-07-28] MEDS ORDERED: Heparin Sod 1000 units/ml 10ml IV PRN (16:30)
[2017-07-28] MEDS ORDERED: Nitroglycerin Subl 0.4mg tab SL PRN (16:45)
[2017-07-28] MEDS ORDERED: Mylanta II UD 30ml ORAL PRN (16:45)
--- NOTE | 2017-07-28 17:00 | Consultation ---
DATE OF CONSULTATION: 07/28/2017 NEPHROLOGY CONSULTATION CONSULTING PHYSICIAN: Rick Andersen M.D. ATTENDING PHYSICIAN: Maki Parnell M.D. REASON FOR CONSULTATION: This is a dialysis patient. HISTORY OF PRESENT ILLNESS: This is a 61-year-old male, who presented to the emergency department for shortness of breath. The patient is a regular dialysis patient Friday, Friday, Friday. He missed his last dialysis last Friday due to shortness of breath and suspected pneumonia. He presented to the emergency department here and is admitted as an inpatient. I am asked kindly by Dr. Parnell, to see this patient for his dialysis related issues. PAST MEDICAL HISTORY: 1. End-stage renal failure, on dialysis secondary to diabetic nephropathy. 2. Type 2 diabetes mellitus. 3. Status post right below-knee amputation. 4. Left foot gangrene. MEDICATIONS: Tylenol p.r.n., amlodipine, atorvastatin, Dulcolax, Lasix, hydralazine, regular insulin, metoprolol 50 mg q.12 h., mineral oil enema, senna p.r.n., Renvela 800 mg b.i.d. with meals, sorbitol p.r.n., Diovan 160 mg daily, multivitamin, Christy-Ambar one p.o. daily, Vitamin D3 1000 units daily. ALLERGIES: Nonsteroidal anti-inflammatory agents. FAMILY HISTORY: Unremarkable. SOCIAL HISTORY: He lives at home. HABITS: He is nonsmoker and nondrinker. There is no history of illicit drug abuse. REVIEW OF SYSTEMS: HEENT: Hearing and eyesight are normal. ENDOCRINE: Significant for type 2 diabetes mellitus. RESPIRATORY: Significant for shortness of breath. CARDIOVASCULAR: Denies chest pain or palpitations. NEUROLOGICAL: No history of stroke, syncope, or Parkinson disease. PHYSICAL EXAMINATION: GENERAL: This is an elderly male, who looks chronically ill. VITAL SIGNS: Blood pressure 170/90, pulse 70 and regular, respirations 20, and temperature 98.8. HEENT: The head is normocephalic and atraumatic. Pupils are equal, round, and reactive to light and accommodation consensually. NECK: Supple. Trachea midline. There was no lymphadenopathy or thyromegaly. LUNGS: Bilateral rhonchi. HEART: Regular rate and rhythm without rubs, murmurs, or gallops. ABDOMEN: Soft and nontender. Bowel sounds were active. EXTREMITIES: He has right below-knee stump. He has left foot, which is dressed. He has a left upper arm AV fistula. NEUROLOGIC: He is alert and oriented x4. Cranial nerves II through XII intact. LABORATORY AND ANCILLARY DATA: CBC shows hematocrit 25.5, otherwise within normal limits. Serum chemistry, sodium 130, potassium 5.9, BUN 108, creatinine 7.4. Alkaline phosphatase is 1042. Albumin is 2. Chest x-ray, per the ER physician no mention of chest x-ray results. ASSESSMENT: 1. Suspected pneumonia. 2. End-stage renal failure on dialysis secondary to diabetic nephropathy. 3. Type 2 diabetes mellitus. 4. Status post right below-knee amputation. 5. Left foot gangrene. PLAN: 1. Hemodialysis today. 2. Erythropoietin. 3. Control blood pressure. Thank you, Dr. Parnell, for letting me to participate in the care of this patient. Rick Andersen M.D. DR: SISSY JOB#: [id number] CC:
[2017-07-28] MEDS: Morphine Sulfate 2mg/ml Inj IVP PRN (18:28)
[2017-07-28] MEDS ORDERED: Atorvastatin 80mg tab ORAL SCH (21:00)
[2017-07-28] MEDS ORDERED: Miralax 17gm pkt ORAL PRN (21:00)
[2017-07-28] MEDS ORDERED: Epogen (for ESRD on dialysis) SUBQ SCH (21:00)
[2017-07-28] MEDS ORDERED: Zolpidem 5mg tab ORAL PRN (21:00)
[2017-07-28] MEDS: Atorvastatin 80mg tab ORAL SCH (21:15)
[2017-07-28] MEDS: Epogen (for ESRD on dialysis) SUBQ SCH (21:20)
[2017-07-28] MEDS: Heparin 5000 units/ml inj SUBQ SCH (21:20)
[2017-07-28] MEDS ORDERED: Vancomycin 1250mg/D5W 250ml IVPB ONE (23:00)
[2017-07-28] MEDS ORDERED: Heparin Sod 1000 units/ml 10ml IV ONE (23:15)
[2017-07-29] VITALS (7 sets, daily range): BP systolic 128–170; BP diastolic 74–90
[2017-07-29] MEDS: Morphine Sulfate 2mg/ml Inj IVP PRN ×3 (00:03→20:39)
[2017-07-29] MEDS: Piperacillin/Tazobactam 2.25 GM in NS 55 ML IVPB SCH ×4 (00:12→23:58)
[2017-07-29] MEDS: NovoLOG Insulin Flexpen SUBQ SCH ×4 (06:23→20:43)
[2017-07-29] MEDS: Albuterol/Ipratropium 3ml neb HHN PRN ×2 (06:39→22:04)
[2017-07-29 06:55] LABS: BASOPHILS % (AUTO) 0.7 % (0.0-2.0); EOSINOPHILS % (AUTO) 0.1 % (0.0-3.0); HEMOGLOBIN 8.5 G/DL (14.2-18.0); LYMPHOCYTES % (AUTO) 14.5 % (20.0-45.0); MEAN CORPUSCULAR VOLUME 89 FL (80-99); MONOCYTES % (AUTO) 2.9 % (1.0-10.0); NEUTROPHILS % (AUTO) 81.8 % (45.0-75.0); PLATELET COUNT 232 K/UL (150-450); RED BLOOD COUNT 3.04 M/UL (4.70-6.10); RED CELL DISTRIBUTION WIDTH 18.6 % (11.6-14.8); WHITE BLOOD COUNT 4.7 K/UL (4.8-10.8)
[2017-07-29 07:43] LABS: ALANINE AMINOTRANSFERASE 48 U/L (12-78); ALKALINE PHOSPHATASE 1009 U/L (46-116); ANION GAP 13 mmol/L (5-15); ASPARTATE AMINO TRANSFERASE 72 U/L (15-37); BILIRUBIN,DIRECT 0.4 MG/DL (0.0-0.3); BILIRUBIN,TOTAL 0.8 MG/DL (0.2-1.0); BLOOD UREA NITROGEN 78 mg/dL (7-18); CALCIUM 8.8 MG/DL (8.5-10.1); CARBON DIOXIDE 27 MMOL/L (21-32); CHLORIDE 93 MMOL/L (98-107); CREATININE 6.4 MG/DL (0.55-1.30); PHOSPHORUS 5.4 MG/DL (2.5-4.9); POTASSIUM 4.5 MMOL/L (3.5-5.1); SODIUM 133 MMOL/L (136-145)
[2017-07-29] MEDS: Renvela 800mg Pkt ORAL SCH ×3 (08:52→17:25)
[2017-07-29] MEDS: Nephrovite tab (Rena-Vite) ORAL SCH (08:52)
[2017-07-29] MEDS: Heparin 5000 units/ml inj SUBQ SCH ×2 (08:53→20:45)
--- NOTE | 2017-07-29 12:31 | Consultation ---
History of Present Illness General Date patient seen: Jul 29, 2017 Chief Complaint: Dyspnea/Respdistress Reason for Consultation: Multiple wounds Present Illness HPI 61 year old male with multiple medical comorbidities as noted below and in history currently under medical care and management. Upon admission was noted to have multiple wounds which require care. Surgery called to evaluate wounds and assist with wound care. Patient seen, chart reviewed, wounds evaluated. Allergies: Coded Allergies: NSAIDS (NON-STEROIDAL ANTI-INFLAMMA (Verified Allergy, Unknown, 07/27/17) Medication History Scheduled Amlodipine Besylate (Norvasc), 10 MG ORAL DAILY, (Reported) Atorvastatin Calcium* (Lipitor*), 80 MG ORAL BEDTIME, (Reported) Furosemide* (Lasix*), 40 MG ORAL TWICE A DAY, (Reported) Hydralazine Hcl* (Hydralazine Hcl*), 100 MG ORAL EVERY 8 HOURS, (Reported) Metoprolol Tartrate* (Metoprolol Tartrate*), 50 MG ORAL EVERY 12 HOURS, ( Reported) Sevelamer Carbonate* (Renvela*), 800 MG ORAL THREE TIMES A DAY, (Reported) Valsartan (Diovan), 160 MG ORAL DAILY, (Reported) Vitamin B Cmplx/Vit C/Folic AC (Nephro-Ambar Tablet), 1 TAB ORAL DAILY, (Reported ) Vitamin D (Vitamin D3), 1,000 UNITS ORAL DAILY, (Reported) Scheduled PRN Acetaminophen* (Acetaminophen 325MG Tablet*), 650 MG ORAL Q4H PRN for For Pain, (Reported) Bisacodyl (Dulcolax), 10 MG RC for Constipation, (Reported) Hydrocodone Bit/Acetaminophen 5-325* ([place] 5-325*), 1 TAB ORAL Q4H PRN for For Pain, (Reported) Miscellaneous Medications Insulin Regular, Human (Humulin R), 0 SUBQ, (Reported) Mineral Oil (Mineral Oil Enema), 133 ML RC, (Reported) Sennosides (Senna), 8.6 MG PO, (Reported) Sorbitol (Sorbitol), Unknown Dose PO, (Reported) Patient History History Provided By: Patient, Medical Record, PMD Healthcare decision maker Resuscitation status Full Code Advanced Directive on File Past Medical/Surgical History Past Medical/Surgical History: (1) Fluid overload (2) Hyperkalemia (3) Respiratory distress (4) Pneumonia (5) Diabetes mellitus (6) ESRD (end stage renal disease) (7) History of right above knee amputation (8) Acute respiratory failure (9) HTN (hypertension) (10) HLD (hyperlipidemia) (11) ESRD on hemodialysis (12) Insulin dependent type 2 diabetes mellitus (13) Diabetic nephropathy (14) Gangrene of left foot (15) Lives at SNF (16) Acute respiratory failure with hypoxia (17) HCAP (healthcare-associated pneumonia) (18) Acute on chronic diastolic (congestive) heart failure (19) Left foot 1st-5th toe extending to plantar of foot gangrene (20) Sacral unstageable/4 pressure ulcer (21) R ischial tuberosity stage 3 resolving with scar tissue (22) Left 4th finger gangrene (23) Hyponatremia Review of Systems All Other Systems: negative except mentioned in HPI Physical Exam General Appearance: no apparent distress HEENT: atraumatic, mucous membranes moist Neck: normal inspection Respiratory/Chest: chest wall non-tender, lungs clear, no respiratory distress , no accessory muscle use Cardiovascular/Chest: normal rate, other - decreased peripheral pulses Abdomen: non tender, soft, no organomegaly Extremities: other - right bka, left tma Skin Exam: warm/dry Neurologic: alert Last 24 Hour Vital Signs Date Time Temp Pulse Resp B/P (MAP) Pulse Ox O2 Delivery O2 Flow Rate FiO2 07/29/17 08:52 76 156/88 07/29/17 08:00 97.7 80 22 170/90 96 97.7 07/29/17 06:43 76 18 99 Venturi Mask 14.0 55 07/29/17 06:39 74 19 97 Venturi Mask 14.0 55 07/29/17 05:15 82 98 07/29/17 04:00 97.5 79 21 156/88 98 97.5 07/29/17 04:00 Venturi Mask 15.0 07/29/17 02:32 80 99 07/29/17 01:19 80 99 07/29/17 00:00 Bi-pap 07/29/17 00:00 99.5 74 22 128/74 100 99.5 07/28/17 23:00 85 22 97 Full Face 85 07/28/17 22:14 99.9 07/28/17 21:15 100.9 07/28/17 20:58 82 99 07/28/17 20:00 Venturi Mask 15.0 07/28/17 20:00 100.9 86 20 164/91 92 100.9 07/28/17 19:20 87 100 07/28/17 17:14 87 100 07/28/17 16:00 88 07/28/17 16:00 98.8 78 20 172/91 100 Bi-pap 15.0 100 98.8 07/28/17 15:01 76 14 98 Full Face 85 07/28/17 15:00 15.0 85 07/28/17 15:00 77 20 171/91 100 Bi-pap 15.0 100 07/28/17 13:59 77 18 154/87 100 Bi-pap 15.0 100 07/28/17 13:29 77 21 100 Full Face 100 07/28/17 13:00 79 18 175/93 100 Bi-pap 15.0 100 07/28/17 13:00 Bi-pap 100 07/28/17 13:00 85 22 165/95 100 Bi-pap 15.0 100 Intake and Output 07/28/17 07/29/17 19:00 07:00 Intake Total 625.000 ml Output Total 3040 ml 780 ml Balance -3040 ml -155.000 ml Intake Oral 320 ml IV Total 305.000 ml Output Urine Total 40 ml 780 ml Hemodialysis UF 3000 ml Laboratory Tests Test 07/28/17 13:30 07/28/17 13:50 07/29/17 05:20 Hepatitis A IgM Antibody Pending Hepatitis B Surface Antigen Pending Hepatitis B Core IgM Antibody Pending Hepatitis C Antibody Pending Free Thyroxine 0.79 NG/DL (0.76-1.46) White Blood Count 4.7 K/UL (4.8-10.8) L Red Blood Count 3.04 M/UL (4.70-6.10) L Hemoglobin 8.5 G/DL (14.2-18.0) L Hematocrit 27.0 % (42.0-52.0) L Mean Corpuscular Volume 89 FL (80-99) Mean Corpuscular Hemoglobin 28.0 PG (27.0-31.0) Mean Corpuscular Hemoglobin Concent 31.6 G/DL (32.0-36.0) L Red Cell Distribution Width 18.6 % (11.6-14.8) H Platelet Count 232 K/UL (150-450) Mean Platelet Volume 7.2 FL (6.5-10.1) Neutrophils (%) (Auto) 81.8 % (45.0-75.0) H Lymphocytes (%) (Auto) 14.5 % (20.0-45.0) L Monocytes (%) (Auto) 2.9 % (1.0-10.0) Eosinophils (%) (Auto) 0.1 % (0.0-3.0) Basophils (%) (Auto) 0.7 % (0.0-2.0) Sodium Level 133 MMOL/L (136-145) L Potassium Level 4.5 MMOL/L (3.5-5.1) Chloride Level 93 MMOL/L (98-107) L Carbon Dioxide Level 27 MMOL/L (21-32) Anion Gap 13 mmol/L (5-15) Blood Urea Nitrogen 78 mg/dL (7-18) H Creatinine 6.4 MG/DL (0.55-1.30) H Estimat Glomerular Filtration Rate 10.8 mL/min (>60) Glucose Level 90 MG/DL (74-106) Calcium Level 8.8 MG/DL (8.5-10.1) Phosphorus Level 5.4 MG/DL (2.5-4.9) H Magnesium Level 2.6 MG/DL (1.8-2.4) H Total Bilirubin 0.8 MG/DL (0.2-1.0) Direct Bilirubin 0.4 MG/DL (0.0-0.3) H Aspartate Amino Transf (AST/SGOT) 72 U/L (15-37) H Alanine Aminotransferase (ALT/SGPT) 48 U/L (12-78) Alkaline Phosphatase 1009 U/L (46-116) H Total Protein 8.4 G/DL (6.4-8.2) H Albumin 2.0 G/DL (3.4-5.0) L Height (Feet): 6 Height (Inches): 1.00 Weight (Pounds): 127 Medications Current Medications Medications (Trade) Dose Ordered Sig/Arlet Route PRN Reason Start Time Stop Time Status Last Admin Dose Admin Acetaminophen (Tylenol) 650 mg Q4H PRN ORAL T>100.5 07/28/17 16:45 08/26/17 16:44 07/28/17 21:15 Al Hydroxide/Mg Hydroxide (Mylanta II) 30 ml Q6H PRN ORAL dyspepsia 07/28/17 16:45 08/26/17 16:44 Albuterol/ Ipratropium (Albuterol/ Ipratropium) 3 ml Q6H PRN HHN dyspnea 07/28/17 17:45 08/02/17 17:44 07/29/17 06:39 Amlodipine Besylate (Norvasc) 10 mg DAILY ORAL 07/29/17 09:00 08/27/17 08:59 07/29/17 08:52 Atorvastatin Calcium (Lipitor) 80 mg BEDTIME ORAL 07/28/17 21:00 08/27/17 20:59 07/28/17 21:15 Bisacodyl (Dulcolax) 10 mg DAILYPRN PRN RECTAL Constipation 07/29/17 17:00 08/28/17 16:59 Dextrose (Dextrose 50%) STAT PRN IV Hypoglycemia 07/28/17 16:45 08/26/17 16:44 Epoetin Mayito (Procrit (for ESRD on dialysis)) 7,000 units MON-WED-FRI SUBQ 07/28/17 21:00 08/27/17 20:59 07/28/17 21:20 Heparin Sodium (Porcine) (Heparin 5000 units/ml) 5,000 units EVERY 12 HOURS SUBQ 07/28/17 21:00 08/27/17 08:59 07/29/17 08:53 Heparin Sodium (Porcine) (Heparin Sod 1000 units/ml 10ml) 2,000 unit ONCE PRN IV FOR HD USE ONLY 07/28/17 16:30 07/30/17 23:59 Insulin Aspart (NovoLOG) BEFORE MEALS AND HS SUBQ 07/28/17 21:00 08/27/17 06:29 07/29/17 12:20 Morphine Sulfate (Morphine Sulfate) 1 mg Q4H PRN IVP PAIN 4-10 07/28/17 17:00 08/03/17 16:59 07/29/17 06:25 Nitroglycerin (Ntg) 0.4 mg Q5M PRN SL Prn Chest Pain 07/28/17 16:45 08/26/17 20:59 Ondansetron HCl (Zofran) 4 mg Q6H PRN IVP Nausea & Vomiting 07/28/17 17:00 08/26/17 16:59 Piperacillin Sod/ Tazobactam Sod 2.25 gm/Sodium Chloride 55 ml @ 110 mls/hr Q8H IVPB 07/29/17 00:00 08/04/17 23:59 07/29/17 08:51 Polyethylene Glycol (Miralax) 17 gm HSPRN PRN ORAL Constipation 07/28/17 21:00 08/26/17 20:59 Sevelamer Carbonate (Renvela) 800 mg THREE TIMES A DAY ORAL 07/28/17 18:00 08/27/17 08:59 07/29/17 08:52 Sodium Chloride 1,000 ml @ 500 mls/hr Q2H PRN IVLG sbp<90 during hd 07/28/17 16:30 07/30/17 23:59 Vancomycin HCl (Vanco rx to dose) 1 ea DAILY PRN MISC Per rx protocol 07/28/17 22:45 08/27/17 22:44 Vitamin B Complex/ Vit C/Folic Acid (Nephrovite) 1 tab DAILY ORAL 07/29/17 09:00 08/27/17 08:59 07/29/17 08:52 Zolpidem Tartrate (Ambien) 5 mg HSPRN PRN ORAL Insomnia 07/28/17 21:00 08/03/17 20:59 Assessment/Plan Problem List: (1) Gangrene of left foot ICD Codes: I96 - Gangrene, not elsewhere classified SNOMED: 15327303935847655 (2) Sacral unstageable/4 pressure ulcer (3) R ischial tuberosity stage 3 resolving with scar tissue (4) Left 4th finger gangrene Status: stable Assessment/Plan 61M with multiple wounds as noted below" #1 Sacral unstageable/4 pressure ulcer #2 right ischial tuberosity stage 3 resolving with scar tissue #3 right BKA scattered scabs . #4 left anterior lower leg scab. #5 Left foot 1st,2nd,3rd,4th,5th toe extending to plantar of foot gangrene #6 left 4th finger gangrene sacral wound without active infection. keep off wound and turn q2h. would not unroof at this time right IT stable without need for debridement right BKA wound stable left foot distal gangrene noted. very poor perfusion and wounds at risk for infection. left 4th finger gangrene with poor perfusion and at risk for worsening infection will monitor for a few days. if not improving may need left 4th finger amputation given how it currently looks. will continue to evaluate. may benefit from left BKA given how poor peripheral tissues look and how bad gangrene is. will monitor for a few days thank you for this consultation. will monitor wounds and follow with recs. continue with wound care for now. Cooper Castaneda Jul 29, 2017 12:31
--- NOTE | 2017-07-29 13:24 | General Progress Note ---
Assessment/Plan Problem List: (1) Sepsis Assessment & Plan: Fever to 100.9, tachycardia ICD Codes: A41.9 - Sepsis, unspecified organism SNOMED: 43031488 (2) Acute respiratory failure with hypoxia ICD Codes: J96.01 - Acute respiratory failure with hypoxia SNOMED: 98152876, 420672698 (3) HCAP (healthcare-associated pneumonia) ICD Codes: J18.9 - Pneumonia, unspecified organism SNOMED: 431345066 (4) Acute on chronic diastolic (congestive) heart failure ICD Codes: I50.33 - Acute on chronic diastolic (congestive) heart failure SNOMED: 48112588, 041073992 (5) Hyperkalemia ICD Codes: E87.5 - Hyperkalemia SNOMED: 75325563 (6) ESRD on hemodialysis ICD Codes: N18.6 - End stage renal disease; Z99.2 - Dependence on renal dialysis SNOMED: 76888300, 448964914 (7) HTN (hypertension) ICD Codes: I10 - Essential (primary) hypertension SNOMED: 90175499 (8) HLD (hyperlipidemia) ICD Codes: E78.5 - Hyperlipidemia, unspecified SNOMED: 60505698 (9) Insulin dependent type 2 diabetes mellitus Assessment & Plan: A1C 7.5 ICD Codes: E11.9 - Type 2 diabetes mellitus without complications; Z79.4 - assisted (current) use of insulin SNOMED: 527186626 (10) Diabetic nephropathy ICD Codes: E11.21 - Type 2 diabetes mellitus with diabetic nephropathy SNOMED: 39885925, 432674660 (11) Gangrene of left foot ICD Codes: I96 - Gangrene, not elsewhere classified SNOMED: 67929496614617907 (12) History of right above knee amputation ICD Codes: Z89.611 - Acquired absence of right leg above knee SNOMED: 464831904 (13) Sacral unstageable/4 pressure ulcer (14) R ischial tuberosity stage 3 resolving with scar tissue (15) Left foot 1st-5th toe extending to plantar of foot gangrene (16) Left 4th finger gangrene (17) Hyponatremia ICD Codes: E87.1 - Hypo-osmolality and hyponatremia SNOMED: 74274983 Status: stable Assessment/Plan Pulm, renal, ID, surgery, podiatry consulted Cont HD per renal--last HD 3/13/18 w/ 3L UF Cont O2 and wean off as tolerated BiPAP qHS and PRN Empiric vanco and zosyn per ID (07/28-) F/u cultures Check TTE--EF 55%, incr RA pressures Podiatry and surgery consulted given concern for gangrene of L foot Check arterial duplex Wound care Cont SNF meds Pain control, bowel regimen Supportive care DVT Prophylaxis: HSQ Code Status: Full Hospital Classification Declaration: Based on this initial evaluation, and depending on the patient's clinical course, I anticipate that this patient will require hospitalization for 2-3 days for HCAP, hypoxia and close respiratory/ hemodynamic monitoring. Disposition: Once the patient is stable to leave the hospital, I anticipate the patient will likely be discharged to the following environment: back to SNF Discussed with patient/family, nursing staff, SW/CM, pulm, renal, ID, surgery, podiatry regarding clinical status, treatment course, and disposition planning. Time of note may not reflect time of encounter. Subjective Date patient seen: Jul 29, 2017 Time patient seen: 13:24 ROS Limited/Unobtainable: No Constitutional: Reports: weakness HEENT: Reports: no symptoms Respiratory: Reports: cough, shortness of breath Gastrointestinal/Abdominal: Reports: no symptoms Genitourinary: Reports: no symptoms Neurologic/Psychiatric: Reports: no symptoms Endocrine: Reports: no symptoms Hematologic/Lymphatic: Reports: no symptoms Allergies: Coded Allergies: NSAIDS (NON-STEROIDAL ANTI-INFLAMMA (Verified Allergy, Unknown, 07/27/17) Subjective No acute o/n events s/p HD yesterday w/ 3L UF Weaned off BiPAP and transferred out of ICU yesterday Fever to 100.9 yesterday K improved, Na improved Currently on Venturi mask. SOB and cough slowly improving. Denies f/c, n/v, d/c , chest pain Objective Last 24 Hour Vital Signs Date Time Temp Pulse Resp B/P (MAP) Pulse Ox O2 Delivery O2 Flow Rate FiO2 07/29/17 12:00 98.2 82 20 134/80 92 98.2 07/29/17 08:52 76 156/88 07/29/17 08:00 97.7 80 22 170/90 96 97.7 07/29/17 06:43 76 18 99 Venturi Mask 14.0 55 07/29/17 06:39 74 19 97 Venturi Mask 14.0 55 07/29/17 05:15 82 98 07/29/17 04:00 97.5 79 21 156/88 98 97.5 07/29/17 04:00 Venturi Mask 15.0 07/29/17 02:32 80 99 07/29/17 01:19 80 99 07/29/17 00:00 Bi-pap 07/29/17 00:00 99.5 74 22 128/74 100 99.5 07/28/17 23:00 85 22 97 Full Face 85 07/28/17 22:14 99.9 07/28/17 21:15 100.9 07/28/17 20:58 82 99 07/28/17 20:00 Venturi Mask 15.0 07/28/17 20:00 100.9 86 20 164/91 92 100.9 07/28/17 19:20 87 100 07/28/17 17:14 87 100 07/28/17 16:00 88 07/28/17 16:00 98.8 78 20 172/91 100 Bi-pap 15.0 100 98.8 07/28/17 15:01 76 14 98 Full Face 85 07/28/17 15:00 15.0 85 07/28/17 15:00 77 20 171/91 100 Bi-pap 15.0 100 07/28/17 13:59 77 18 154/87 100 Bi-pap 15.0 100 07/28/17 13:29 77 21 100 Full Face 100 Intake and Output 07/28/17 07/29/17 19:00 07:00 Intake Total 625.000 ml Output Total 3040 ml 780 ml Balance -3040 ml -155.000 ml Intake Oral 320 ml IV Total 305.000 ml Output Urine Total 40 ml 780 ml Hemodialysis UF 3000 ml Laboratory Tests 07/28/17 13:30: Hepatitis A IgM Antibody Negative, Hepatitis B Surface Antigen Negative, Hepatitis B Core IgM Antibody Negative, Hepatitis C Antibody 0.2 07/28/17 13:50: Free Thyroxine 0.79 07/29/17 05:20: White Blood Count 4.7L, Red Blood Count 3.04L, Hemoglobin 8.5L, Hematocrit 27.0L , Mean Corpuscular Volume 89, Mean Corpuscular Hemoglobin 28.0, Mean Corpuscular Hemoglobin Concent 31.6L, Red Cell Distribution Width 18.6H, Platelet Count 232, Mean Platelet Volume 7.2, Neutrophils (%) (Auto) 81.8H, Lymphocytes (%) (Auto) 14.5L, Monocytes (%) (Auto) 2.9, Eosinophils (%) (Auto) 0.1, Basophils (%) (Auto) 0.7, Sodium Level 133L, Potassium Level 4.5, Chloride Level 93L, Carbon Dioxide Level 27, Anion Gap 13, Blood Urea Nitrogen 78H, Creatinine 6.4H, Estimat Glomerular Filtration Rate 10.8, Glucose Level 90, Calcium Level 8.8, Phosphorus Level 5.4H, Magnesium Level 2.6H, Total Bilirubin 0.8, Direct Bilirubin 0.4H, Aspartate Amino Transf (AST/SGOT) 72H, Alanine Aminotransferase (ALT/SGPT) 48, Alkaline Phosphatase 1009H, Total Protein 8.4H, Albumin 2.0L Height (Feet): 6 Height (Inches): 1.00 Weight (Pounds): 127 Objective General Appearance: normal inspection, awake, alert Head: atraumatic ENT: normal ENT inspection, hearing grossly normal, normal voice Neck: normal inspection, full range of motion, supple, no bony tend Respiratory:+rhonchi b/l Cardiovascular: regular rate, rhythm, edema Gastrointestinal: normal inspection, normal bowel sounds, non tender, soft Genitourinary: no CVA tenderness Musculoskeletal: normal inspection, back normal, swelling - amputation Neurologic: normal inspection, alert, responsive, speech normal Ext: +R AKA, L foot with 1st-5th toes w/ e/o gangrene extending to plantar foot Maxwell Lin M.D. Jul 29, 2017 13:24
--- NOTE | 2017-07-29 13:59 | Nephrology Progress Note ---
Assessment/Plan Plan Sepsis _ IV Abx ESRD - HD tomorrow Subjective Subjective No new c/o Objective Objective Last 24 Hour Vital Signs Date Time Temp Pulse Resp B/P (MAP) Pulse Ox O2 Delivery O2 Flow Rate FiO2 07/29/17 12:00 98.2 82 20 134/80 92 98.2 07/29/17 08:52 76 156/88 07/29/17 08:00 97.7 80 22 170/90 96 97.7 07/29/17 06:43 76 18 99 Venturi Mask 14.0 55 07/29/17 06:39 74 19 97 Venturi Mask 14.0 55 07/29/17 05:15 82 98 07/29/17 04:00 97.5 79 21 156/88 98 97.5 07/29/17 04:00 Venturi Mask 15.0 07/29/17 02:32 80 99 07/29/17 01:19 80 99 07/29/17 00:00 Bi-pap 07/29/17 00:00 99.5 74 22 128/74 100 99.5 07/28/17 23:00 85 22 97 Full Face 85 07/28/17 22:14 99.9 07/28/17 21:15 100.9 07/28/17 20:58 82 99 07/28/17 20:00 Venturi Mask 15.0 07/28/17 20:00 100.9 86 20 164/91 92 100.9 07/28/17 19:20 87 100 07/28/17 17:14 87 100 07/28/17 16:00 88 07/28/17 16:00 98.8 78 20 172/91 100 Bi-pap 15.0 100 98.8 07/28/17 15:01 76 14 98 Full Face 85 07/28/17 15:00 15.0 85 07/28/17 15:00 77 20 171/91 100 Bi-pap 15.0 100 07/28/17 13:59 77 18 154/87 100 Bi-pap 15.0 100 Intake and Output 07/28/17 07/29/17 19:00 07:00 Intake Total 625.000 ml Output Total 3040 ml 780 ml Balance -3040 ml -155.000 ml Intake Oral 320 ml IV Total 305.000 ml Output Urine Total 40 ml 780 ml Hemodialysis UF 3000 ml Laboratory Tests 07/29/17 05:20: White Blood Count 4.7L, Red Blood Count 3.04L, Hemoglobin 8.5L, Hematocrit 27.0L , Mean Corpuscular Volume 89, Mean Corpuscular Hemoglobin 28.0, Mean Corpuscular Hemoglobin Concent 31.6L, Red Cell Distribution Width 18.6H, Platelet Count 232, Mean Platelet Volume 7.2, Neutrophils (%) (Auto) 81.8H, Lymphocytes (%) (Auto) 14.5L, Monocytes (%) (Auto) 2.9, Eosinophils (%) (Auto) 0.1, Basophils (%) (Auto) 0.7, Sodium Level 133L, Potassium Level 4.5, Chloride Level 93L, Carbon Dioxide Level 27, Anion Gap 13, Blood Urea Nitrogen 78H, Creatinine 6.4H, Estimat Glomerular Filtration Rate 10.8, Glucose Level 90, Calcium Level 8.8, Phosphorus Level 5.4H, Magnesium Level 2.6H, Total Bilirubin 0.8, Direct Bilirubin 0.4H, Aspartate Amino Transf (AST/SGOT) 72H, Alanine Aminotransferase (ALT/SGPT) 48, Alkaline Phosphatase 1009H, Total Protein 8.4H, Albumin 2.0L Height (Feet): 6 Height (Inches): 1.00 Weight (Pounds): 127 Objective CV RR Lungs CTA Abd SNT. BS + E Rt BKA dressed. Lt. Foot dressed MATT SMITH Jul 29, 2017 13:58
--- NOTE | 2017-07-29 14:28 | Consultation ---
Consult Note Assessment/Plan A/ 1) Gangrene left foot 2) PAD 3) DM 4) BKA RLE 5) ESRD P/ 1) Wound care ordered 2) Unilateral arterial ultz LLE 3) Cont abx 4) Appreciate Gen Sx recs 5) Will follow Thank you Giovany Noel DPM Jul 29, 2017 14:28
--- NOTE | 2017-07-29 14:52 | Cardiology Report ---
APPROVED REPORT EXAM: Two-dimensional and M-mode echocardiogram with Doppler and color Doppler. INDICATION SOB M-Mode DIMENSIONS IVSd1.4 (0.7-1.1cm)Left Atrium (MM)4.2 (1.6-4.0cm) LVDd4.5 (3.5-5.6cm)Aortic Root3.6 (2.0-3.7cm) PWd1.1 (0.7-1.1cm)Aortic Cusp Exc.2.0 (1.5-2.0cm) LVDs3.3 (2.5-4.0cm) PWs1.2 cm Normal left ventricular chamber size, systolic function and wall motion. Left ventricular ejection fraction estimated to be 50-55%. Mild left ventricular hypertrophy. No evidence of pericardial or pleural effusion. Moderate left atrial enlargement by 2D. Moderate right atrial enlargement by 2D. Focal aortic valve sclerosis with adequate cusp excursion. Thickened mitral valve leaflets with normal excursion. Mild mitral annulus and aortic root calcification. Pulmonic valve not well visualized. Normal tricuspid valve structure. IVC is normal in size and collapsible with respiration. IVC dilated at 2.5 cm non-collapsible with respiration indicate increased RA pressure. A color flow and spectral Doppler study was performed and revealed: Trace aortic regurgitation. Mild mitral regurgitation however cannot exclude an eccentric jet along the mv closure line medialy directed Mitral diastolic function not obtainable due to A-FIB. Moderate tricuspid regurgitation. Tricuspid systolic velocities suggests peak right ventricular systolic pressure of 42 mmHg Consistent with mild pulmonary hypertension. Pulmonic regurgitation present.
[2017-07-29] MEDS: Betadine 10% Oint 30gm TOPIC SCH (16:03)
--- NOTE | 2017-07-29 17:58 | Cardiology Report ---
APPROVED REPORT EKG Measurement Heart [id number] sinus with very prolonged first degree av block Left axis deviation Low voltage QRS Nonspecific T wave abnormality Prolonged QT Abnormal ECG
--- NOTE | 2017-07-29 20:19 | Infectious Diseases Prog Note ---
Assessment/Plan Assessment/Plan Ful consult dictated: A) 1) pna, left foot gangrene, left fourth finger gangrene 2) multiple wounds 3) esrd, hd, pmh noted 4) allergies - nsaids P) 1) vancomycin and zosyn 2) check sc, labs, chest x-ray 3) per surgery and podiatry 4) may need amputation 5) thank you Subjective Allergies: Coded Allergies: NSAIDS (NON-STEROIDAL ANTI-INFLAMMA (Verified Allergy, Unknown, 07/27/17) Objective Vital Signs Last 24 Hour Vital Signs Date Time Temp Pulse Resp B/P (MAP) Pulse Ox O2 Delivery O2 Flow Rate FiO2 07/29/17 15:54 98.4 78 20 144/80 93 98.4 07/29/17 12:00 98.2 82 20 134/80 92 98.2 07/29/17 08:52 76 156/88 07/29/17 08:00 97.7 80 22 170/90 96 97.7 07/29/17 06:43 76 18 99 Venturi Mask 14.0 55 07/29/17 06:39 74 19 97 Venturi Mask 14.0 55 07/29/17 05:15 82 98 07/29/17 04:00 97.5 79 21 156/88 98 97.5 07/29/17 04:00 Venturi Mask 15.0 07/29/17 02:32 80 99 07/29/17 01:19 80 99 07/29/17 00:00 Bi-pap 07/29/17 00:00 99.5 74 22 128/74 100 99.5 07/28/17 23:00 85 22 97 Full Face 85 07/28/17 22:14 99.9 07/28/17 21:15 100.9 07/28/17 20:58 82 99 Height (Feet): 6 Height (Inches): 1.00 Weight (Pounds): 127 Microbiology Date/Time Source Procedure Growth Status 07/27/17 21:04 Blood Blood Culture - Preliminary NO GROWTH AFTER 24 HOURS Resulted 07/27/17 20:50 Blood Blood Culture - Preliminary NO GROWTH AFTER 24 HOURS Resulted 07/27/17 22:03 Nasal Nares Influenza Types A,B Antigen (NILA) - Final Complete Laboratory Tests Test 07/29/17 05:20 White Blood Count 4.7 K/UL (4.8-10.8) L Red Blood Count 3.04 M/UL (4.70-6.10) L Hemoglobin 8.5 G/DL (14.2-18.0) L Hematocrit 27.0 % (42.0-52.0) L Mean Corpuscular Volume 89 FL (80-99) Mean Corpuscular Hemoglobin 28.0 PG (27.0-31.0) Mean Corpuscular Hemoglobin Concent 31.6 G/DL (32.0-36.0) L Red Cell Distribution Width 18.6 % (11.6-14.8) H Platelet Count 232 K/UL (150-450) Mean Platelet Volume 7.2 FL (6.5-10.1) Neutrophils (%) (Auto) 81.8 % (45.0-75.0) H Lymphocytes (%) (Auto) 14.5 % (20.0-45.0) L Monocytes (%) (Auto) 2.9 % (1.0-10.0) Eosinophils (%) (Auto) 0.1 % (0.0-3.0) Basophils (%) (Auto) 0.7 % (0.0-2.0) Sodium Level 133 MMOL/L (136-145) L Potassium Level 4.5 MMOL/L (3.5-5.1) Chloride Level 93 MMOL/L (98-107) L Carbon Dioxide Level 27 MMOL/L (21-32) Anion Gap 13 mmol/L (5-15) Blood Urea Nitrogen 78 mg/dL (7-18) H Creatinine 6.4 MG/DL (0.55-1.30) H Estimat Glomerular Filtration Rate 10.8 mL/min (>60) Glucose Level 90 MG/DL (74-106) Calcium Level 8.8 MG/DL (8.5-10.1) Phosphorus Level 5.4 MG/DL (2.5-4.9) H Magnesium Level 2.6 MG/DL (1.8-2.4) H Total Bilirubin 0.8 MG/DL (0.2-1.0) Direct Bilirubin 0.4 MG/DL (0.0-0.3) H Aspartate Amino Transf (AST/SGOT) 72 U/L (15-37) H Alanine Aminotransferase (ALT/SGPT) 48 U/L (12-78) Alkaline Phosphatase 1009 U/L (46-116) H Total Protein 8.4 G/DL (6.4-8.2) H Albumin 2.0 G/DL (3.4-5.0) L Current Medications Medications (Trade) Dose Ordered Sig/Arlet Route PRN Reason Start Time Stop Time Status Last Admin Dose Admin Acetaminophen (Tylenol) 650 mg Q4H PRN ORAL T>100.5 07/28/17 16:45 08/26/17 16:44 07/28/17 21:15 Al Hydroxide/Mg Hydroxide (Mylanta II) 30 ml Q6H PRN ORAL dyspepsia 07/28/17 16:45 08/26/17 16:44 Albuterol/ Ipratropium (Albuterol/ Ipratropium) 3 ml Q6H PRN HHN dyspnea 07/28/17 17:45 08/02/17 17:44 07/29/17 06:39 Amlodipine Besylate (Norvasc) 10 mg DAILY ORAL 07/29/17 09:00 08/27/17 08:59 07/29/17 08:52 Atorvastatin Calcium (Lipitor) 80 mg BEDTIME ORAL 07/28/17 21:00 08/27/17 20:59 07/28/17 21:15 Bisacodyl (Dulcolax) 10 mg DAILYPRN PRN RECTAL Constipation 07/29/17 17:00 08/28/17 16:59 Dextrose (Dextrose 50%) STAT PRN IV Hypoglycemia 07/28/17 16:45 08/26/17 16:44 Epoetin Mayito (Procrit (for ESRD on dialysis)) 7,000 units FRI-FRI-FRI SUBQ 07/28/17 21:00 08/27/17 20:59 07/28/17 21:20 Heparin Sodium (Porcine) (Heparin 5000 units/ml) 5,000 units EVERY 12 HOURS SUBQ 07/28/17 21:00 08/27/17 08:59 07/29/17 08:53 Heparin Sodium (Porcine) (Heparin Sod 1000 units/ml 10ml) 2,000 unit ONCE ONCE IV 07/30/17 14:00 07/30/17 14:01 Heparin Sodium (Porcine) (Heparin Sod 1000 units/ml 10ml) 2,000 unit ONCE PRN IV FOR HD USE ONLY 07/28/17 16:30 07/30/17 23:59 Insulin Aspart (NovoLOG) BEFORE MEALS AND HS SUBQ 07/28/17 21:00 08/27/17 06:29 07/29/17 12:20 Morphine Sulfate (Morphine Sulfate) 1 mg Q4H PRN IVP PAIN 4-10 07/28/17 17:00 08/03/17 16:59 07/29/17 06:25 Nitroglycerin (Ntg) 0.4 mg Q5M PRN SL Prn Chest Pain 07/28/17 16:45 08/26/17 20:59 Ondansetron HCl (Zofran) 4 mg Q6H PRN IVP Nausea & Vomiting 07/28/17 17:00 08/26/17 16:59 Piperacillin Sod/ Tazobactam Sod 2.25 gm/Sodium Chloride 55 ml @ 110 mls/hr Q8H IVPB 07/29/17 00:00 08/04/17 23:59 07/29/17 16:03 Polyethylene Glycol (Miralax) 17 gm HSPRN PRN ORAL Constipation 07/28/17 21:00 08/26/17 20:59 Povidone Iodine (Betadine Oint) 1 applic DAILY TOPIC 07/29/17 15:00 08/28/17 14:59 07/29/17 16:03 Sevelamer Carbonate (Renvela) 800 mg THREE TIMES A DAY ORAL 07/28/17 18:00 08/27/17 08:59 07/29/17 13:17 Sodium Chloride 1,000 ml @ 500 mls/hr Q2H PRN IVLG sbp<90 during hd 07/28/17 16:30 07/30/17 23:59 Sodium Chloride 1,000 ml @ 500 mls/hr Q2H PRN IVLG sbp<90 during hd 07/30/17 13:59 08/29/17 13:58 Vancomycin HCl (Vanco rx to dose) 1 ea DAILY PRN MISC Per rx protocol 07/28/17 22:45 08/27/17 22:44 Vitamin B Complex/ Vit C/Folic Acid (Nephrovite) 1 tab DAILY ORAL 07/29/17 09:00 08/27/17 08:59 07/29/17 08:52 Zolpidem Tartrate (Ambien) 5 mg HSPRN PRN ORAL Insomnia 07/28/17 21:00 08/03/17 20:59 FAROOQ TAVARES Jul 29, 2017 20:19
[2017-07-29] MEDS: Atorvastatin 80mg tab ORAL SCH (20:38)
--- NOTE | 2017-07-29 21:22 | Pulmonology Progress Note ---
Assessment/Plan Problems: (1) Acute respiratory failure (2) Pneumonia (3) ESRD (end stage renal disease) (4) Diabetes mellitus (5) History of right above knee amputation Assessment/Plan improving continue abx cxr in am check sputum HD prn BIPAP Subjective ROS Limited/Unobtainable: No Allergies: Coded Allergies: NSAIDS (NON-STEROIDAL ANTI-INFLAMMA (Verified Allergy, Unknown, 07/27/17) Objective Last 24 Hour Vital Signs Date Time Temp Pulse Resp B/P (MAP) Pulse Ox O2 Delivery O2 Flow Rate FiO2 07/29/17 20:00 97.7 86 19 166/86 86 97.7 07/29/17 15:54 98.4 78 20 144/80 93 98.4 07/29/17 12:00 98.2 82 20 134/80 92 98.2 07/29/17 08:52 76 156/88 07/29/17 08:00 97.7 80 22 170/90 96 97.7 07/29/17 06:43 76 18 99 Venturi Mask 14.0 55 07/29/17 06:39 74 19 97 Venturi Mask 14.0 55 07/29/17 05:15 82 98 07/29/17 04:00 97.5 79 21 156/88 98 97.5 07/29/17 04:00 Venturi Mask 15.0 07/29/17 02:32 80 99 07/29/17 01:19 80 99 07/29/17 00:00 Bi-pap 07/29/17 00:00 99.5 74 22 128/74 100 99.5 07/28/17 23:00 85 22 97 Full Face 85 07/28/17 22:14 99.9 Intake and Output 07/28/17 07/29/17 19:00 07:00 Intake Total 625.000 ml Output Total 3040 ml 780 ml Balance -3040 ml -155.000 ml Intake Oral 320 ml IV Total 305.000 ml Output Urine Total 40 ml 780 ml Hemodialysis UF 3000 ml Objective General Appearance: cachectic HEENT: normocephalic, atraumatic, anicteric Respiratory/Chest: chest wall non-tender, + rhonchi Breasts: no masses Cardiovascular: normal peripheral pulses Abdomen: normal bowel sounds Genitourinary: normal external genitalia Microbiology Date/Time Source Procedure Growth Status 07/27/17 21:04 Blood Blood Culture - Preliminary NO GROWTH AFTER 24 HOURS Resulted 07/27/17 20:50 Blood Blood Culture - Preliminary NO GROWTH AFTER 24 HOURS Resulted 07/27/17 22:03 Nasal Nares Influenza Types A,B Antigen (NILA) - Final Complete Laboratory Tests 07/29/17 05:20: White Blood Count 4.7L, Red Blood Count 3.04L, Hemoglobin 8.5L, Hematocrit 27.0L , Mean Corpuscular Volume 89, Mean Corpuscular Hemoglobin 28.0, Mean Corpuscular Hemoglobin Concent 31.6L, Red Cell Distribution Width 18.6H, Platelet Count 232, Mean Platelet Volume 7.2, Neutrophils (%) (Auto) 81.8H, Lymphocytes (%) (Auto) 14.5L, Monocytes (%) (Auto) 2.9, Eosinophils (%) (Auto) 0.1, Basophils (%) (Auto) 0.7, Sodium Level 133L, Potassium Level 4.5, Chloride Level 93L, Carbon Dioxide Level 27, Anion Gap 13, Blood Urea Nitrogen 78H, Creatinine 6.4H, Estimat Glomerular Filtration Rate 10.8, Glucose Level 90, Calcium Level 8.8, Phosphorus Level 5.4H, Magnesium Level 2.6H, Total Bilirubin 0.8, Direct Bilirubin 0.4H, Aspartate Amino Transf (AST/SGOT) 72H, Alanine Aminotransferase (ALT/SGPT) 48, Alkaline Phosphatase 1009H, Total Protein 8.4H, Albumin 2.0L Current Medications Medications (Trade) Dose Ordered Sig/Arlet Route PRN Reason Start Time Stop Time Status Last Admin Dose Admin Acetaminophen (Tylenol) 650 mg Q4H PRN ORAL T>100.5 07/28/17 16:45 08/26/17 16:44 07/28/17 21:15 Al Hydroxide/Mg Hydroxide (Mylanta II) 30 ml Q6H PRN ORAL dyspepsia 07/28/17 16:45 08/26/17 16:44 Albuterol/ Ipratropium (Albuterol/ Ipratropium) 3 ml Q6H PRN HHN dyspnea 07/28/17 17:45 08/02/17 17:44 07/29/17 06:39 Amlodipine Besylate (Norvasc) 10 mg DAILY ORAL 07/29/17 09:00 08/27/17 08:59 07/29/17 08:52 Atorvastatin Calcium (Lipitor) 80 mg BEDTIME ORAL 07/28/17 21:00 08/27/17 20:59 07/29/17 20:38 Bisacodyl (Dulcolax) 10 mg DAILYPRN PRN RECTAL Constipation 07/29/17 17:00 08/28/17 16:59 Dextrose (Dextrose 50%) STAT PRN IV Hypoglycemia 07/28/17 16:45 08/26/17 16:44 Epoetin Mayito (Procrit (for ESRD on dialysis)) 7,000 units FRI-FRI-FRI SUBQ 07/28/17 21:00 08/27/17 20:59 07/28/17 21:20 Heparin Sodium (Porcine) (Heparin 5000 units/ml) 5,000 units EVERY 12 HOURS SUBQ 07/28/17 21:00 08/27/17 08:59 07/29/17 20:45 Heparin Sodium (Porcine) (Heparin Sod 1000 units/ml 10ml) 2,000 unit ONCE ONCE IV 07/30/17 14:00 07/30/17 14:01 Heparin Sodium (Porcine) (Heparin Sod 1000 units/ml 10ml) 2,000 unit ONCE PRN IV FOR HD USE ONLY 07/28/17 16:30 07/30/17 23:59 Insulin Aspart (NovoLOG) BEFORE MEALS AND HS SUBQ 07/28/17 21:00 08/27/17 06:29 07/29/17 20:43 Morphine Sulfate (Morphine Sulfate) 1 mg Q4H PRN IVP PAIN 4-10 07/28/17 17:00 08/03/17 16:59 07/29/17 20:39 Nitroglycerin (Ntg) 0.4 mg Q5M PRN SL Prn Chest Pain 07/28/17 16:45 08/26/17 20:59 Ondansetron HCl (Zofran) 4 mg Q6H PRN IVP Nausea & Vomiting 07/28/17 17:00 08/26/17 16:59 Permethrin (Elimite) 1 applic ONCE ONCE TOPIC 07/29/17 22:00 07/29/17 22:01 Piperacillin Sod/ Tazobactam Sod 2.25 gm/Sodium Chloride 55 ml @ 110 mls/hr Q8H IVPB 07/29/17 00:00 08/04/17 23:59 07/29/17 16:03 Polyethylene Glycol (Miralax) 17 gm HSPRN PRN ORAL Constipation 07/28/17 21:00 08/26/17 20:59 Povidone Iodine (Betadine Oint) 1 applic DAILY TOPIC 07/29/17 15:00 08/28/17 14:59 07/29/17 16:03 Sevelamer Carbonate (Renvela) 800 mg THREE TIMES A DAY ORAL 07/28/17 18:00 08/27/17 08:59 07/29/17 13:17 Sodium Chloride 1,000 ml @ 500 mls/hr Q2H PRN IVLG sbp<90 during hd 07/28/17 16:30 07/30/17 23:59 Sodium Chloride 1,000 ml @ 500 mls/hr Q2H PRN IVLG sbp<90 during hd 07/30/17 13:59 08/29/17 13:58 Vancomycin HCl (Vanco rx to dose) 1 ea DAILY PRN MISC Per rx protocol 07/28/17 22:45 08/27/17 22:44 Vitamin B Complex/ Vit C/Folic Acid (Nephrovite) 1 tab DAILY ORAL 07/29/17 09:00 08/27/17 08:59 07/29/17 08:52 Zolpidem Tartrate (Ambien) 5 mg HSPRN PRN ORAL Insomnia 07/28/17 21:00 08/03/17 20:59 Dusty Dutta MD Jul 29, 2017 21:22
[2017-07-29 22:43] LABS: FERRITIN 670 NG/ML (8-388)
[2017-07-29 23:07] LABS: % IRON SATURATION 7 % (15-50); IRON 12 ug/dL (50-175); TOTAL IRON BINDING CAPACITY 162 ug/dL (250-450)
[2017-07-30] VITALS: BP 136/71
[2017-07-30 04:00] VITALS: BP 148/82
[2017-07-30 04:39] LABS: HEMATOCRIT 24.9 % (42.0-52.0); HEMOGLOBIN 7.9 G/DL (14.2-18.0); MEAN CORPUSCULAR VOLUME 87 FL (80-99); PLATELET COUNT 180 K/UL (150-450); RED BLOOD COUNT 2.85 M/UL (4.70-6.10); RED CELL DISTRIBUTION WIDTH 18.6 % (11.6-14.8); WHITE BLOOD COUNT 4.5 K/UL (4.8-10.8)
[2017-07-30 04:59] LABS: INR 1.2 (0.9-1.1)
[2017-07-30 05:07] LABS: ALANINE AMINOTRANSFERASE 38 U/L (12-78); ALBUMIN 1.8 G/DL (3.4-5.0); ALBUMIN/GLOBULIN RATIO 0.3 (1.0-2.7); ALKALINE PHOSPHATASE 828 U/L (46-116); ANION GAP 14 mmol/L (5-15); ASPARTATE AMINO TRANSFERASE 59 U/L (15-37); BILIRUBIN,TOTAL 0.7 MG/DL (0.2-1.0); BLOOD UREA NITROGEN 86 mg/dL (7-18); CALCIUM 8.4 MG/DL (8.5-10.1); CARBON DIOXIDE 26 MMOL/L (21-32); CHLORIDE 93 MMOL/L (98-107); CREATININE 6.8 MG/DL (0.55-1.30); POTASSIUM 4.1 MMOL/L (3.5-5.1); SODIUM 133 MMOL/L (136-145)
[2017-07-30 05:10] LABS: PHOSPHORUS 6.2 MG/DL (2.5-4.9)
[2017-07-30] MEDS: NovoLOG Insulin Flexpen SUBQ SCH ×4 (06:30→20:48)
[2017-07-30] MEDS: Albuterol/Ipratropium 3ml neb HHN PRN (06:51)
[2017-07-30 08:00] VITALS: BP 150/79
[2017-07-30] MEDS: Renvela 800mg Pkt ORAL SCH ×3 (09:01→17:25)
[2017-07-30] MEDS: Nephrovite tab (Rena-Vite) ORAL SCH (09:01)
[2017-07-30] MEDS: Piperacillin/Tazobactam 2.25 GM in NS 55 ML IVPB SCH ×2 (09:01→16:34)
[2017-07-30] MEDS: Heparin 5000 units/ml inj SUBQ SCH ×2 (09:06→20:48)
[2017-07-30] MEDS: Betadine 10% Oint 30gm TOPIC SCH (09:06)
--- NOTE | 2017-07-30 09:43 | General Progress Note ---
Progress Note Progress Note Patient seen and examined Consult dictated # [id number] BLANCA STONE Jul 30, 2017 09:43
--- NOTE | 2017-07-30 10:16 | Diagnostic Imaging Report ---
Indication: Cough Technique: One view of the chest Comparison: 07/27/2017 Findings: There is increasing infiltrate in the right midlung. There is new or increased infiltrate in the left perihilar region, as well. The heart is borderline enlarged. The pleural spaces are clear Impression: Increasing right midlung infiltrate, over 3 days New or increased left perihilar infiltrate
[2017-07-30] MEDS ORDERED: Tubing IV Secondary IV ONE (11:11)
[2017-07-30] MEDS ORDERED: NS 275ml ONE (11:11)
[2017-07-30 11:52] VITALS: BP 141/77
[2017-07-30] MEDS ORDERED: Heparin Sod 1000 units/ml 10ml IV PRN (14:00)
--- NOTE | 2017-07-30 14:15 | Consultation ---
DATE OF CONSULTATION: 07/29/2017 HEMATOLOGY/ONCOLOGY CONSULTATION CONSULTING PHYSICIAN: Alexandre Chanel M.D. REFERRING PHYSICIAN: Maki Parnell M.D. and Maxwell Lin M.D. REASON FOR CONSULTATION: Evaluation of anemia. IDENTIFYING DATA: Dear Dr. Parnell and Dr. Arreola, The patient is a pleasant 61-year-old male, dialysis patient, at this time was seen by Dr. Arreola yesterday. He has past medical history significant for hyperlipidemia, hypertension, dialysis, diabetes mellitus type 2, at this time presents with bad cough for the past several days, next dialysis on Friday, complains of subjective fevers and chills. Chest x-ray consistent with pneumonia, has been seen by Pulmonary team as well as renal sales consultant residential manager for urgent dialysis, seen by Surgical Service, Dr. Cooper Castaneda, and the patient may benefit from sacral wound debridement in the future perfusion and is at risk of an infection. Therefore, Hematology Service consulted for further evaluation of anemia. PAST MEDICAL HISTORY: As noted above. End-stage renal failure, on dialysis; left foot gangrene, status post right below-knee amputation; and type 2 diabetes mellitus. MEDICATIONS: Tylenol, Lipitor, Lasix, Dulcolax, hydralazine, mineral oil enema, metoprolol, sorbitol, and Diovan. ALLERGIES: NSAIDs. FAMILY HISTORY: Noncontributory. SOCIAL HISTORY: Lives at home. REVIEW OF SYSTEMS: CONSTITUTIONAL: No fevers, chills, or night sweats. SKIN: No rashes, bumps, or itching. HEENT: No headache, hearing or vision changes. BREASTS: No lumps, pain, or discharge. PULMONARY: No cough, sputum, or shortness of breath. GASTROINTESTINAL: No nausea, vomiting, or diarrhea. GENITOURINARY: No dysuria, frequency, or urgency. MUSCULOSKELETAL: No joint swelling, muscle pain, or trauma. PHYSICAL EXAMINATION: VITAL SIGNS: Reviewed. GENERAL: No distress. PULMONARY: Decreased breath sounds. CARDIOVASCULAR: Regular rate. No S3 or S4. ABDOMEN: Soft, nontender, and nondistended. EXTREMITIES: No cyanosis, swelling, or edema. LABORATORY AND DIAGNOSTIC DATA: WBC is 12.7, hemoglobin 8.3, hematocrit 24, and platelet count reviewed 232,000. Chemistry reviewed. BUN of 78, creatinine 6.4. summary reviewed. The patient in the past has not had anemia workup, which will be ordered at this time. ASSESSMENT AND RECOMMENDATIONS: 1. Anemia, secondary to underlying chronic disease. Continue to closely monitor. Anemia workup has been ordered. Hemoglobin goal is above 7. anemia panel. 2. Leukopenia, likely secondary to underlying infection. 3. Fourth left gangrene antibiotics, needing amputation. 4. Gangrene of the left foot, may need amputation with Dr. Giovany Noel. 5. End-stage renal failure, on hemodialysis three times a week. 6. Hyponatremia. per construction trades teacher. Alexandre Chanel M.D. DR: BRYAN JOB#: [id number] CC:
--- NOTE | 2017-07-30 15:01 | General Surgery Progress Note ---
General Surgery-Progress Note Subjective Symptoms: improved Additional Comments doing well. no complaints. had long discussion about wounds today at bedside. Objective Last 24 Hour Vital Signs Date Time Temp Pulse Resp B/P (MAP) Pulse Ox O2 Delivery O2 Flow Rate FiO2 07/30/17 11:52 97.5 77 25 141/77 91 97.5 07/30/17 09:01 74 148/82 07/30/17 08:00 97.3 79 20 150/79 100 97.3 07/30/17 07:20 98 Venturi Mask 14.0 55 07/30/17 07:19 Venturi Mask 14.0 55 07/30/17 06:58 74 16 98 Venturi Mask 14.0 55 07/30/17 06:45 74 16 93 Venturi Mask 14.0 55 07/30/17 04:00 Venturi Mask 12.0 07/30/17 04:00 97.5 76 20 148/82 97 97.5 07/30/17 00:00 97.9 78 19 136/71 96 97.9 07/30/17 00:00 Venturi Mask 12.0 07/29/17 22:24 79 18 98 Venturi Mask 14.0 55 07/29/17 22:10 77 18 92 Venturi Mask 14.0 55 07/29/17 22:09 77 18 Venturi Mask 12.0 55 07/29/17 21:30 156/88 07/29/17 20:00 97.7 86 19 166/86 86 97.7 07/29/17 20:00 Venturi Mask 12.0 07/29/17 15:54 98.4 78 20 144/80 93 98.4 I&O Intake and Output 07/29/17 07/30/17 19:00 07:00 Intake Total 240 ml 55 ml Balance 240 ml 55 ml Intake Oral 240 ml IV Total 55 ml # Voids 2 1 Dressing: dry Wound: clean Drains: none Cardiovascular: RSR Respiratory: clear Abdomen: soft, flat, non-tender Extremities: cyanosis Laboratory Tests Test 07/29/17 21:45 07/30/17 04:15 Reticulocyte Count 0.5 % (0.0-2.0) Haptoglobin Pending Fibrinogen 387 mg/dL (200-400) Uric Acid 5.6 MG/DL (2.6-7.2) Iron Level 12 ug/dL (50-175) L Total Iron Binding Capacity 162 ug/dL (250-450) L Percent Iron Saturation 7 % (15-50) L Unsaturated Iron Binding 150 ug/dL (112-346) Ferritin 670 NG/ML (8-388) H Vitamin B12 Level 1559 PG/ML (193-986) H Methylmalonic Acid Pending Folate 49.6 NG/ML (8.6-58.9) White Blood Count 4.5 K/UL (4.8-10.8) L Red Blood Count 2.85 M/UL (4.70-6.10) L Hemoglobin 7.9 G/DL (14.2-18.0) L Hematocrit 24.9 % (42.0-52.0) L Mean Corpuscular Volume 87 FL (80-99) Mean Corpuscular Hemoglobin 27.7 PG (27.0-31.0) Mean Corpuscular Hemoglobin Concent 31.7 G/DL (32.0-36.0) L Red Cell Distribution Width 18.6 % (11.6-14.8) H Platelet Count 180 K/UL (150-450) Mean Platelet Volume 6.5 FL (6.5-10.1) Neutrophils (%) (Auto) % (45.0-75.0) Lymphocytes (%) (Auto) % (20.0-45.0) Monocytes (%) (Auto) % (1.0-10.0) Eosinophils (%) (Auto) % (0.0-3.0) Basophils (%) (Auto) % (0.0-2.0) Differential Total Cells Counted 100 Neutrophils % (Manual) 85 % (45-75) H Lymphocytes % (Manual) 14 % (20-45) L Monocytes % (Manual) 1 % (1-10) Eosinophils % (Manual) 0 % (0-3) Basophils % (Manual) 0 % (0-2) Band Neutrophils 0 % (0-8) Platelet Estimate Adequate Platelet Morphology Normal Hypochromasia 1+ Anisocytosis 1+ Prothrombin Time 11.7 SEC (9.30-11.50) H Prothromb Time International Ratio 1.2 (0.9-1.1) H Activated Partial Thromboplast Time 40 SEC (23-33) H Sodium Level 133 MMOL/L (136-145) L Potassium Level 4.1 MMOL/L (3.5-5.1) Chloride Level 93 MMOL/L (98-107) L Carbon Dioxide Level 26 MMOL/L (21-32) Anion Gap 14 mmol/L (5-15) Blood Urea Nitrogen 86 mg/dL (7-18) H Creatinine 6.8 MG/DL (0.55-1.30) H Estimat Glomerular Filtration Rate 10.1 mL/min (>60) Glucose Level 99 MG/DL (74-106) Calcium Level 8.4 MG/DL (8.5-10.1) L Phosphorus Level 6.2 MG/DL (2.5-4.9) H Magnesium Level 2.5 MG/DL (1.8-2.4) H Total Bilirubin 0.7 MG/DL (0.2-1.0) Aspartate Amino Transf (AST/SGOT) 59 U/L (15-37) H Alanine Aminotransferase (ALT/SGPT) 38 U/L (12-78) Alkaline Phosphatase 828 U/L (46-116) H Total Protein 7.6 G/DL (6.4-8.2) Albumin 1.8 G/DL (3.4-5.0) L Globulin 5.8 g/dL Albumin/Globulin Ratio 0.3 (1.0-2.7) L Vancomycin Level Trough 13.7 ug/mL (5.0-12.0) H Assessment Additional Comments 61M with multiple wounds as noted below #1 Sacral unstageable/4 pressure ulcer #2 right ischial tuberosity stage 3 resolving with scar tissue #3 right BKA scattered scabs . #4 left anterior lower leg scab. #5 Left foot 1st,2nd,3rd,4th,5th toe extending to plantar of foot gangrene #6 left 4th finger gangrene sacral wound without active infection. keep off wound and turn q2h. continue with dressing changes. right IT stable without need for debridement right BKA wound stable left foot distal gangrene noted. very poor perfusion and wounds at risk for infection. will likely need transmetatarsal amputation or BKA soon left 4th finger gangrene with poor perfusion and at risk for worsening infection. should have amputation as well. discussed wounds and care with patient. he states that he had his right BKA at [facility] and is scheduled to have left TMA at [facility] in a few weeks. if this is the case, wounds stable and can do that as desired. if desired can address wounds here. currently cont with dressings. will follow with recs. Plan Problems: (1) Gangrene of left foot (2) Sacral unstageable/4 pressure ulcer (3) R ischial tuberosity stage 3 resolving with scar tissue (4) Left 4th finger gangrene Cooper Castaneda Jul 30, 2017 15:00
--- NOTE | 2017-07-30 15:23 | Infectious Diseases Prog Note ---
Assessment/Plan Assessment/Plan Ful consult dictated: A) 1) pna, left foot gangrene, left fourth finger gangrene 2) multiple wounds 3) esrd, hd, pmh noted 4) allergies - nsaids P) 1) vancomycin and zosyn 2) check sc, labs, chest x-ray 3) per surgery and podiatry 4) may need amputation 5) thank you Subjective Allergies: Coded Allergies: NSAIDS (NON-STEROIDAL ANTI-INFLAMMA (Verified Allergy, Unknown, 07/27/17) Objective Vital Signs Last 24 Hour Vital Signs Date Time Temp Pulse Resp B/P (MAP) Pulse Ox O2 Delivery O2 Flow Rate FiO2 07/30/17 11:52 97.5 77 25 141/77 91 97.5 07/30/17 09:01 74 148/82 07/30/17 08:00 97.3 79 20 150/79 100 97.3 07/30/17 07:20 98 Venturi Mask 14.0 55 07/30/17 07:19 Venturi Mask 14.0 55 07/30/17 06:58 74 16 98 Venturi Mask 14.0 55 07/30/17 06:45 74 16 93 Venturi Mask 14.0 55 07/30/17 04:00 Venturi Mask 12.0 07/30/17 04:00 97.5 76 20 148/82 97 97.5 07/30/17 00:00 97.9 78 19 136/71 96 97.9 07/30/17 00:00 Venturi Mask 12.0 07/29/17 22:24 79 18 98 Venturi Mask 14.0 55 07/29/17 22:10 77 18 92 Venturi Mask 14.0 55 07/29/17 22:09 77 18 Venturi Mask 12.0 55 07/29/17 21:30 156/88 07/29/17 20:00 97.7 86 19 166/86 86 97.7 07/29/17 20:00 Venturi Mask 12.0 07/29/17 15:54 98.4 78 20 144/80 93 98.4 Height (Feet): 6 Height (Inches): 1.00 Weight (Pounds): 127 Microbiology Date/Time Source Procedure Growth Status 07/27/17 21:04 Blood Blood Culture - Preliminary NO GROWTH AFTER 48 HOURS Resulted 07/27/17 20:50 Blood Blood Culture - Preliminary NO GROWTH AFTER 48 HOURS Resulted 07/27/17 22:03 Nasal Nares Influenza Types A,B Antigen (NILA) - Final Complete 07/27/17 22:03 Rectum VRE Culture - Final NO VANCOMYCIN RESISTANT ENTEROCOCCUS ... Complete Laboratory Tests Test 07/29/17 21:45 07/30/17 04:15 Reticulocyte Count 0.5 % (0.0-2.0) Haptoglobin Pending Fibrinogen 387 mg/dL (200-400) Uric Acid 5.6 MG/DL (2.6-7.2) Iron Level 12 ug/dL (50-175) L Total Iron Binding Capacity 162 ug/dL (250-450) L Percent Iron Saturation 7 % (15-50) L Unsaturated Iron Binding 150 ug/dL (112-346) Ferritin 670 NG/ML (8-388) H Vitamin B12 Level 1559 PG/ML (193-986) H Methylmalonic Acid Pending Folate 49.6 NG/ML (8.6-58.9) White Blood Count 4.5 K/UL (4.8-10.8) L Red Blood Count 2.85 M/UL (4.70-6.10) L Hemoglobin 7.9 G/DL (14.2-18.0) L Hematocrit 24.9 % (42.0-52.0) L Mean Corpuscular Volume 87 FL (80-99) Mean Corpuscular Hemoglobin 27.7 PG (27.0-31.0) Mean Corpuscular Hemoglobin Concent 31.7 G/DL (32.0-36.0) L Red Cell Distribution Width 18.6 % (11.6-14.8) H Platelet Count 180 K/UL (150-450) Mean Platelet Volume 6.5 FL (6.5-10.1) Neutrophils (%) (Auto) % (45.0-75.0) Lymphocytes (%) (Auto) % (20.0-45.0) Monocytes (%) (Auto) % (1.0-10.0) Eosinophils (%) (Auto) % (0.0-3.0) Basophils (%) (Auto) % (0.0-2.0) Differential Total Cells Counted 100 Neutrophils % (Manual) 85 % (45-75) H Lymphocytes % (Manual) 14 % (20-45) L Monocytes % (Manual) 1 % (1-10) Eosinophils % (Manual) 0 % (0-3) Basophils % (Manual) 0 % (0-2) Band Neutrophils 0 % (0-8) Platelet Estimate Adequate Platelet Morphology Normal Hypochromasia 1+ Anisocytosis 1+ Prothrombin Time 11.7 SEC (9.30-11.50) H Prothromb Time International Ratio 1.2 (0.9-1.1) H Activated Partial Thromboplast Time 40 SEC (23-33) H Sodium Level 133 MMOL/L (136-145) L Potassium Level 4.1 MMOL/L (3.5-5.1) Chloride Level 93 MMOL/L (98-107) L Carbon Dioxide Level 26 MMOL/L (21-32) Anion Gap 14 mmol/L (5-15) Blood Urea Nitrogen 86 mg/dL (7-18) H Creatinine 6.8 MG/DL (0.55-1.30) H Estimat Glomerular Filtration Rate 10.1 mL/min (>60) Glucose Level 99 MG/DL (74-106) Calcium Level 8.4 MG/DL (8.5-10.1) L Phosphorus Level 6.2 MG/DL (2.5-4.9) H Magnesium Level 2.5 MG/DL (1.8-2.4) H Total Bilirubin 0.7 MG/DL (0.2-1.0) Aspartate Amino Transf (AST/SGOT) 59 U/L (15-37) H Alanine Aminotransferase (ALT/SGPT) 38 U/L (12-78) Alkaline Phosphatase 828 U/L (46-116) H Total Protein 7.6 G/DL (6.4-8.2) Albumin 1.8 G/DL (3.4-5.0) L Globulin 5.8 g/dL Albumin/Globulin Ratio 0.3 (1.0-2.7) L Vancomycin Level Trough 13.7 ug/mL (5.0-12.0) H Current Medications Medications (Trade) Dose Ordered Sig/Arlet Route PRN Reason Start Time Stop Time Status Last Admin Dose Admin Acetaminophen (Tylenol) 650 mg Q4H PRN ORAL T>100.5 07/28/17 16:45 08/26/17 16:44 07/28/17 21:15 Al Hydroxide/Mg Hydroxide (Mylanta II) 30 ml Q6H PRN ORAL dyspepsia 07/28/17 16:45 08/26/17 16:44 Albuterol/ Ipratropium (Albuterol/ Ipratropium) 3 ml Q6H PRN HHN dyspnea 07/28/17 17:45 08/02/17 17:44 07/30/17 06:51 Amlodipine Besylate (Norvasc) 10 mg DAILY ORAL 07/29/17 09:00 08/27/17 08:59 07/30/17 09:01 Atorvastatin Calcium (Lipitor) 80 mg BEDTIME ORAL 07/28/17 21:00 08/27/17 20:59 07/29/17 20:38 Bisacodyl (Dulcolax) 10 mg DAILYPRN PRN RECTAL Constipation 07/29/17 17:00 08/28/17 16:59 Dextrose (Dextrose 50%) STAT PRN IV Hypoglycemia 07/28/17 16:45 08/26/17 16:44 Epoetin Mayito (Procrit (for ESRD on dialysis)) 7,000 units MON-WED-FRI SUBQ 07/28/17 21:00 08/27/17 20:59 07/28/17 21:20 Heparin Sodium (Porcine) (Heparin 5000 units/ml) 5,000 units EVERY 12 HOURS SUBQ 07/28/17 21:00 08/27/17 08:59 07/30/17 09:06 Heparin Sodium (Porcine) (Heparin Sod 1000 units/ml 10ml) 2,000 unit ONCE PRN IV FOR HD USE ONLY 07/30/17 14:00 07/30/17 23:59 Insulin Aspart (NovoLOG) BEFORE MEALS AND HS SUBQ 07/28/17 21:00 08/27/17 06:29 07/30/17 12:22 Morphine Sulfate (Morphine Sulfate) 1 mg Q4H PRN IVP PAIN 4-10 07/28/17 17:00 08/03/17 16:59 07/29/17 20:39 Nitroglycerin (Ntg) 0.4 mg Q5M PRN SL Prn Chest Pain 07/28/17 16:45 08/26/17 20:59 Ondansetron HCl (Zofran) 4 mg Q6H PRN IVP Nausea & Vomiting 07/28/17 17:00 08/26/17 16:59 Piperacillin Sod/ Tazobactam Sod 2.25 gm/Sodium Chloride 55 ml @ 110 mls/hr Q8H IVPB 07/29/17 00:00 08/04/17 23:59 07/30/17 09:01 Polyethylene Glycol (Miralax) 17 gm HSPRN PRN ORAL Constipation 07/28/17 21:00 08/26/17 20:59 Povidone Iodine (Betadine Oint) 1 applic DAILY TOPIC 07/29/17 15:00 08/28/17 14:59 07/30/17 09:06 Sevelamer Carbonate (Renvela) 800 mg THREE TIMES A DAY ORAL 07/28/17 18:00 08/27/17 08:59 07/30/17 09:01 Sodium Chloride 1,000 ml @ 500 mls/hr Q2H PRN IVLG sbp<90 during hd 07/28/17 16:30 07/30/17 23:59 Sodium Chloride 1,000 ml @ 500 mls/hr Q2H PRN IVLG sbp<90 during hd 07/30/17 13:59 08/29/17 13:58 Vancomycin HCl (Vanco rx to dose) 1 ea DAILY PRN MISC Per rx protocol 07/28/17 22:45 08/27/17 22:44 Vancomycin HCl 1 gm/Dextrose 275 ml @ 183.708 mls/hr ONCE ONCE IVPB 07/30/17 18:00 07/30/17 19:29 Vitamin B Complex/ Vit C/Folic Acid (Nephrovite) 1 tab DAILY ORAL 07/29/17 09:00 08/27/17 08:59 07/30/17 09:01 Zolpidem Tartrate (Ambien) 5 mg HSPRN PRN ORAL Insomnia 07/28/17 21:00 08/03/17 20:59 FAROOQ TAVARES Jul 30, 2017 15:23
[2017-07-30 16:00] VITALS: BP 127/78
--- NOTE | 2017-07-30 16:55 | Nephrology Progress Note ---
Assessment/Plan Plan Sepsis _ IV Abx ESRD - HD tomorrow Pt needs Vascular w/u. DW CM HD pending Subjective Subjective No new c/o Objective Objective Last 24 Hour Vital Signs Date Time Temp Pulse Resp B/P (MAP) Pulse Ox O2 Delivery O2 Flow Rate FiO2 07/30/17 11:52 97.5 77 25 141/77 91 97.5 07/30/17 09:01 74 148/82 07/30/17 08:00 97.3 79 20 150/79 100 97.3 07/30/17 07:20 98 Venturi Mask 14.0 55 07/30/17 07:19 Venturi Mask 14.0 55 07/30/17 06:58 74 16 98 Venturi Mask 14.0 55 07/30/17 06:45 74 16 93 Venturi Mask 14.0 55 07/30/17 04:00 Venturi Mask 12.0 07/30/17 04:00 97.5 76 20 148/82 97 97.5 07/30/17 00:00 97.9 78 19 136/71 96 97.9 07/30/17 00:00 Venturi Mask 12.0 07/29/17 22:24 79 18 98 Venturi Mask 14.0 55 07/29/17 22:10 77 18 92 Venturi Mask 14.0 55 07/29/17 22:09 77 18 Venturi Mask 12.0 55 07/29/17 21:30 156/88 07/29/17 20:00 97.7 86 19 166/86 86 97.7 07/29/17 20:00 Venturi Mask 12.0 Intake and Output 07/29/17 07/30/17 19:00 07:00 Intake Total 240 ml 55 ml Balance 240 ml 55 ml Intake Oral 240 ml IV Total 55 ml # Voids 2 1 Laboratory Tests 07/29/17 21:45: Reticulocyte Count 0.5, Haptoglobin [Pending], Fibrinogen 387, Uric Acid 5.6, Iron Level 12L, Total Iron Binding Capacity 162L, Percent Iron Saturation 7L, Unsaturated Iron Binding 150, Ferritin 670H, Vitamin B12 Level 1559H, Methylmalonic Acid [Pending], Folate 49.6 07/30/17 04:15: White Blood Count 4.5L, Red Blood Count 2.85L, Hemoglobin 7.9L, Hematocrit 24.9L , Mean Corpuscular Volume 87, Mean Corpuscular Hemoglobin 27.7, Mean Corpuscular Hemoglobin Concent 31.7L, Red Cell Distribution Width 18.6H, Platelet Count 180, Mean Platelet Volume 6.5, Neutrophils (%) (Auto) , Lymphocytes (%) (Auto) , Monocytes (%) (Auto) , Eosinophils (%) (Auto) , Basophils (%) (Auto) , Differential Total Cells Counted 100, Neutrophils % ( Manual) 85H, Lymphocytes % (Manual) 14L, Monocytes % (Manual) 1, Eosinophils % ( Manual) 0, Basophils % (Manual) 0, Band Neutrophils 0, Platelet Estimate Adequate, Platelet Morphology Normal, Hypochromasia 1+, Anisocytosis 1+, Prothrombin Time 11.7H, Prothromb Time International Ratio 1.2H, Activated Partial Thromboplast Time 40H, Sodium Level 133L, Potassium Level 4.1, Chloride Level 93L, Carbon Dioxide Level 26, Anion Gap 14, Blood Urea Nitrogen 86H, Creatinine 6.8H, Estimat Glomerular Filtration Rate 10.1, Glucose Level 99, Calcium Level 8.4L, Phosphorus Level 6.2H, Magnesium Level 2.5H, Total Bilirubin 0.7, Aspartate Amino Transf (AST/SGOT) 59H, Alanine Aminotransferase ( ALT/SGPT) 38, Alkaline Phosphatase 828H, Total Protein 7.6, Albumin 1.8L, Globulin 5.8, Albumin/Globulin Ratio 0.3L, Vancomycin Level Trough 13.7H Height (Feet): 6 Height (Inches): 1.00 Weight (Pounds): 127 Objective CV RR Lungs CTA Abd SNT. BS + E Rt BKA dressed. Lt. Foot dressed Rick Andersen MD Jul 30, 2017 16:55
--- NOTE | 2017-07-30 17:30 | Consultation ---
DATE OF CONSULTATION: 07/30/2017 VASCULAR SURGERY CONSULTATION CONSULTING PHYSICIAN: Corky Fontenot M.D. REFERRING PHYSICIAN: Giovany Noel M.D. REASON FOR EVALUATION: Left fifth toe and distal foot gangrene. HISTORY OF PRESENT ILLNESS: This is a 61-year-old male, who suffers from end-stage renal failure, on hemodialysis through a left upper arm cephalic vein AV shunt. The patient suffers from diabetes, hypertension, calcific PAD, and former heavy smoker. The patient had a right below-knee amputation at [facility]. By his report, he reportedly has had angiograms and has a followup at [facility] regarding his left foot gangrene. Vascular Surgery is consulted for further evaluation. The patient currently has no other complaints. PAST MEDICAL HISTORY: As above. History of end-stage renal failure, on hemodialysis; heart failure; left cephalic vein AV shunt; hypertension; hyperlipidemia; diabetes mellitus; history of right leg below-knee amputation; history of sacral decubitus ulceration; left fourth finger gangrene; and left foot one to five extensive gangrene to the plantar of the foot. MEDICATIONS: See attached MAR. ALLERGIES: Nonsteroidals. SOCIAL HISTORY: Denies any history of smoking, drugs, or alcohol abuse. He resides in a senior care and he is a former heavy smoker and drinker. FAMILY HISTORY: Unremarkable. SYSTEMS REVIEW: CARDIOVASCULAR: Denies history of chest pain or palpitation. PULMONARY: No cough or hemoptysis. GASTROINTESTINAL: No history of abdominal pain, constipation, or diarrhea. GENITOURINARY: No urinary symptoms. NEUROLOGIC: No history of strokes or seizures. PHYSICAL EXAMINATION: VITAL SIGNS: The patient is afebrile 97.3, heart rate 74, blood pressure is 148/82, respirations 20, and saturations 100%. NECK: He has palpable radial pulses. No evidence of carotid bruit. He has a left cephalic vein AV shunt thrill. LUNGS: Clear to auscultation. HEART: Regular rate and rhythm. ABDOMEN: Soft and nontender. EXTREMITIES: He has palpable femoral pulses. Absent popliteal pulses. Right below-knee amputation stump is clean, dry, and intact. Left foot is warm with absent dorsalis pedis and posterior tibial pulses. He has extensive gangrene necrosis, dry, of entire five toes on the left foot with significant ischemia. LABORATORY DATA: Laboratories revealed WBC of 4.5, hemoglobin 7.9, and platelet count of 180,000. Sodium 133, potassium 4.1, BUN is 86, and creatinine 6.8. IMPRESSION: 1. 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 2. History of right leg below-knee amputation. 3. Multiple risk factors with end-stage renal failure, on hemodialysis, hypertension, diabetes mellitus, former heavy smoker with hyperlipidemia. PLAN AND RECOMMENDATION: 1. We will obtain and review the lower extremity arterial duplex. 2. The patient will strongly benefit from selective left leg angiography for assessment for revascularization and then the patient can have left proximal foot amputation. 3. Antibiotics per Infectious Disease Service. Corky Fontenot M.D. DR: HARRY JOB#: [id number] CC: Corky Fontenot M.D.; Fax#: [phone] DOUG CANTU M.D. ; FAX#: [phone] Robb BOLANOSPXander; FAX#: [phone] MATT SMITH M.D.; FAX#: [phone] [place]
[2017-07-30] MEDS ORDERED: Vancomycin 1gm/D5W 275ml IVPB ONE ×2 (18:00)
--- NOTE | 2017-07-30 19:19 | Pulmonology Progress Note ---
Assessment/Plan Problems: (1) Acute respiratory failure (2) Pneumonia (3) ESRD (end stage renal disease) (4) Diabetes mellitus (5) History of right above knee amputation Assessment/Plan improving continue abx cxr in am check sputum HD prn BIPAP dc planning soon Subjective ROS Limited/Unobtainable: No Constitutional: Reports: no symptoms HEENT: Repors: no symptoms Respiratory: Reports: no symptoms Allergies: Coded Allergies: NSAIDS (NON-STEROIDAL ANTI-INFLAMMA (Verified Allergy, Unknown, 07/27/17) Objective Last 24 Hour Vital Signs Date Time Temp Pulse Resp B/P (MAP) Pulse Ox O2 Delivery O2 Flow Rate FiO2 07/30/17 19:02 97 Venturi Mask 14.0 55 07/30/17 19:02 75 20 Venturi Mask 14.0 55 07/30/17 19:02 Venturi Mask 14.0 55 07/30/17 16:00 96.4 71 19 127/78 100 96.4 07/30/17 11:52 97.5 77 25 141/77 91 97.5 07/30/17 09:01 74 148/82 07/30/17 08:00 97.3 79 20 150/79 100 97.3 07/30/17 07:20 98 Venturi Mask 14.0 55 07/30/17 07:19 Venturi Mask 14.0 55 07/30/17 06:58 74 16 98 Venturi Mask 14.0 55 07/30/17 06:45 74 16 93 Venturi Mask 14.0 55 07/30/17 04:00 Venturi Mask 12.0 07/30/17 04:00 97.5 76 20 148/82 97 97.5 07/30/17 00:00 97.9 78 19 136/71 96 97.9 07/30/17 00:00 Venturi Mask 12.0 07/29/17 22:24 79 18 98 Venturi Mask 14.0 55 07/29/17 22:10 77 18 92 Venturi Mask 14.0 55 07/29/17 22:09 77 18 Venturi Mask 12.0 55 07/29/17 21:30 156/88 07/29/17 20:00 97.7 86 19 166/86 86 97.7 07/29/17 20:00 Venturi Mask 12.0 Intake and Output 07/29/17 07/30/17 19:00 07:00 Intake Total 240 ml 55 ml Balance 240 ml 55 ml Intake Oral 240 ml IV Total 55 ml # Voids 2 1 Objective General Appearance: cachectic HEENT: normocephalic, atraumatic, anicteric Respiratory/Chest: chest wall non-tender, + rhonchi Breasts: no masses Cardiovascular: normal peripheral pulses Abdomen: normal bowel sounds Genitourinary: normal external genitalia Microbiology Date/Time Source Procedure Growth Status 07/27/17 21:04 Blood Blood Culture - Preliminary NO GROWTH AFTER 48 HOURS Resulted 07/27/17 20:50 Blood Blood Culture - Preliminary NO GROWTH AFTER 48 HOURS Resulted 07/27/17 22:03 Nasal Nares Influenza Types A,B Antigen (NILA) - Final Complete 07/27/17 22:03 Rectum VRE Culture - Final NO VANCOMYCIN RESISTANT ENTEROCOCCUS ... Complete Laboratory Tests 07/29/17 21:45: Reticulocyte Count 0.5, Haptoglobin [Pending], Fibrinogen 387, Uric Acid 5.6, Iron Level 12L, Total Iron Binding Capacity 162L, Percent Iron Saturation 7L, Unsaturated Iron Binding 150, Ferritin 670H, Vitamin B12 Level 1559H, Methylmalonic Acid [Pending], Folate 49.6 07/30/17 04:15: White Blood Count 4.5L, Red Blood Count 2.85L, Hemoglobin 7.9L, Hematocrit 24.9L , Mean Corpuscular Volume 87, Mean Corpuscular Hemoglobin 27.7, Mean Corpuscular Hemoglobin Concent 31.7L, Red Cell Distribution Width 18.6H, Platelet Count 180, Mean Platelet Volume 6.5, Neutrophils (%) (Auto) , Lymphocytes (%) (Auto) , Monocytes (%) (Auto) , Eosinophils (%) (Auto) , Basophils (%) (Auto) , Differential Total Cells Counted 100, Neutrophils % ( Manual) 85H, Lymphocytes % (Manual) 14L, Monocytes % (Manual) 1, Eosinophils % ( Manual) 0, Basophils % (Manual) 0, Band Neutrophils 0, Platelet Estimate Adequate, Platelet Morphology Normal, Hypochromasia 1+, Anisocytosis 1+, Prothrombin Time 11.7H, Prothromb Time International Ratio 1.2H, Activated Partial Thromboplast Time 40H, Sodium Level 133L, Potassium Level 4.1, Chloride Level 93L, Carbon Dioxide Level 26, Anion Gap 14, Blood Urea Nitrogen 86H, Creatinine 6.8H, Estimat Glomerular Filtration Rate 10.1, Glucose Level 99, Calcium Level 8.4L, Phosphorus Level 6.2H, Magnesium Level 2.5H, Total Bilirubin 0.7, Aspartate Amino Transf (AST/SGOT) 59H, Alanine Aminotransferase ( ALT/SGPT) 38, Alkaline Phosphatase 828H, Total Protein 7.6, Albumin 1.8L, Globulin 5.8, Albumin/Globulin Ratio 0.3L, Vancomycin Level Trough 13.7H Current Medications Medications (Trade) Dose Ordered Sig/Arlet Route PRN Reason Start Time Stop Time Status Last Admin Dose Admin Acetaminophen (Tylenol) 650 mg Q4H PRN ORAL T>100.5 07/28/17 16:45 08/26/17 16:44 07/28/17 21:15 Al Hydroxide/Mg Hydroxide (Mylanta II) 30 ml Q6H PRN ORAL dyspepsia 07/28/17 16:45 08/26/17 16:44 Albuterol/ Ipratropium (Albuterol/ Ipratropium) 3 ml Q6H PRN HHN dyspnea 07/28/17 17:45 08/02/17 17:44 07/30/17 06:51 Amlodipine Besylate (Norvasc) 10 mg DAILY ORAL 07/29/17 09:00 08/27/17 08:59 07/30/17 09:01 Atorvastatin Calcium (Lipitor) 80 mg BEDTIME ORAL 07/28/17 21:00 08/27/17 20:59 07/29/17 20:38 Bisacodyl (Dulcolax) 10 mg DAILYPRN PRN RECTAL Constipation 07/29/17 17:00 08/28/17 16:59 Dextrose (Dextrose 50%) STAT PRN IV Hypoglycemia 07/28/17 16:45 08/26/17 16:44 Epoetin Mayito (Procrit (for ESRD on dialysis)) 7,000 units MON-WED-FRI SUBQ 07/28/17 21:00 08/27/17 20:59 07/28/17 21:20 Heparin Sodium (Porcine) (Heparin 5000 units/ml) 5,000 units EVERY 12 HOURS SUBQ 07/28/17 21:00 08/27/17 08:59 07/30/17 09:06 Heparin Sodium (Porcine) (Heparin Sod 1000 units/ml 10ml) 2,000 unit ONCE PRN IV FOR HD USE ONLY 07/30/17 14:00 07/30/17 23:59 Insulin Aspart (NovoLOG) BEFORE MEALS AND HS SUBQ 07/28/17 21:00 08/27/17 06:29 07/30/17 16:38 Morphine Sulfate (Morphine Sulfate) 1 mg Q4H PRN IVP PAIN 4-10 07/28/17 17:00 08/03/17 16:59 07/29/17 20:39 Nitroglycerin (Ntg) 0.4 mg Q5M PRN SL Prn Chest Pain 07/28/17 16:45 08/26/17 20:59 Ondansetron HCl (Zofran) 4 mg Q6H PRN IVP Nausea & Vomiting 07/28/17 17:00 08/26/17 16:59 Piperacillin Sod/ Tazobactam Sod 2.25 gm/Sodium Chloride 55 ml @ 110 mls/hr Q8H IVPB 07/29/17 00:00 08/04/17 23:59 07/30/17 16:34 Polyethylene Glycol (Miralax) 17 gm HSPRN PRN ORAL Constipation 07/28/17 21:00 08/26/17 20:59 Povidone Iodine (Betadine Oint) 1 applic DAILY TOPIC 07/29/17 15:00 08/28/17 14:59 07/30/17 09:06 Sevelamer Carbonate (Renvela) 800 mg THREE TIMES A DAY ORAL 07/28/17 18:00 08/27/17 08:59 07/30/17 17:25 Sodium Chloride 1,000 ml @ 500 mls/hr Q2H PRN IVLG sbp<90 during hd 07/28/17 16:30 07/30/17 23:59 Sodium Chloride 1,000 ml @ 500 mls/hr Q2H PRN IVLG sbp<90 during hd 07/30/17 13:59 08/29/17 13:58 Vancomycin HCl (Vanco rx to dose) 1 ea DAILY PRN MISC Per rx protocol 07/28/17 22:45 08/27/17 22:44 Vancomycin HCl 1 gm/Dextrose 275 ml @ 183.708 mls/hr ONCE ONCE IVPB 07/30/17 18:00 07/30/17 19:29 07/30/17 17:25 Vitamin B Complex/ Vit C/Folic Acid (Nephrovite) 1 tab DAILY ORAL 07/29/17 09:00 08/27/17 08:59 07/30/17 09:01 Zolpidem Tartrate (Ambien) 5 mg HSPRN PRN ORAL Insomnia 07/28/17 21:00 08/03/17 20:59 Dusty Dutta MD Jul 30, 2017 19:18
[2017-07-30 19:39] VITALS: BP 152/76
[2017-07-30] MEDS: Morphine Sulfate 2mg/ml Inj IVP PRN (20:47)
[2017-07-30] MEDS: Atorvastatin 80mg tab ORAL SCH (20:48)
--- NOTE | 2017-07-30 21:00 | Consultation ---
DATE OF CONSULTATION: 07/30/2017 INFECTIOUS DISEASES CONSULTATION ATTENDING PHYSICIAN: Maki Parnell M.D. REFERRING PHYSICIAN: Maxwell Lin M.D. REASON FOR CONSULTATION: Pneumonia, left foot gangrene, left hand fourth digit gangrene, fevers, and possible sepsis. CHIEF COMPLAINT: The patient's chief complaint coming in the hospital is shortness of breath and pneumonia. HISTORY OF PRESENT ILLNESS: This is a very pleasant 61-year-old male, who comes into [facility] with shortness of breath, hypoxia, and congestion. Chest x-ray showed that he had an infiltrate in the right mid lung. The patient has been I believe in the hospital previously he was at [facility]. The patient could have pneumonia including community-acquired versus aspiration healthcare-acquired pneumonia. The patient had fevers coming in. Clinically also the patient has left foot gangrene and left hand fourth digit gangrene. Infectious Diseases consultation requested for antibiotic management. He was started on vancomycin and Zosyn. Sputum culture is pending. I saw the patient yesterday and today clinically he feels better with less shortness of breath. MAR was noted. Orders were noted. Notes were reviewed. Case discussed with RN. Case communicated and discussed with Dr. Arreola. PAST MEDICAL HISTORY: Includes history of the following. The patient has past medical history of end-stage renal disease, on hemodialysis. He has history of diabetes, hypertension, hyperlipidemia, end-stage renal disease on hemodialysis, anemia, peripheral vascular disease, hypoxia, congestion. He has history of right BKA and diabetic nephropathy. MEDICATIONS: Upon reviewing the MAR, he is on the following medications. He is on vancomycin and Zosyn. He is on heparin and bisacodyl. He is on amlodipine, Norvasc, Zosyn, vancomycin, atorvastatin, Epogen, heparin, insulin, polyethylene, zolpidem, sevelamer, albuterol, morphine, Zofran, acetaminophen, and nitroglycerin. Antibiotics, Zosyn and vancomycin. Outside medications noted and reconciliated. ALLERGIES: Include NSAIDs. SOCIAL HISTORY: Currently is negative for smoking, alcohol, or drug abuse. FAMILY HISTORY: Noncontributory. Negative for exposure to tuberculosis or cancer. REVIEW OF SYSTEMS: CONSTITUTIONAL: He has generalized weakness and fatigue. He has some congestion and shortness of breath. He came in with fevers. Currently, no fever or chills. HEAD AND NECK: No thrush or dysphagia. CARDIAC: No chest pain. GASTROINTESTINAL: No nausea, vomiting, or diarrhea. GENITOURINARY: He is a hemodialysis patient. PULMONARY: His congestion and short of breath improved today versus yesterday with sputum production yellow-green. SKIN: No rash or itching. EXTREMITIES: He has left foot gangrene and left hand digit gangrene. NEUROLOGIC: No seizures. He has generalized weakness and fatigue. No mention of weight loss or night sweats. No CVA tenderness. No Oseguera. PHYSICAL EXAMINATION: VITAL SIGNS: Temperature is 100.9 degrees that is T-max, currently temperature 97.5 degrees, pulse rate 77, respiratory rate 25, blood pressure 141/77, and saturation is 91%. GENERAL: Alert and responsive. Seems to be oriented. Less congested today than yesterday. HEAD AND NECK: Oral exam, no thrush. Eye exam, no icterus. Normocephalic. No facial droop. No neck stiffness. Neck is supple. HEART: Regular. No gallop or murmur. No friction rub. ABDOMEN: Soft. Positive bowel sounds. Nontender. LUNGS: Bilateral rhonchi, rales, and crackles. SKIN: No maculopapular rash. MUSCULOSKELETAL: He has right leg amputation. PERIPHERAL VASCULAR: He has left foot gangrene. He has left hand fourth digit gangrene. MUSCULOSKELETAL: No evidence of septic arthritis. No other cellulitis noted in the legs or extremities. GENITOURINARY: No Oseguera. No CVA tenderness. LINES: Line sites without phlebitis. NEUROLOGIC: Awake and responsive. Seems to be alert and oriented x3. Nonfocal. LABORATORY AND DIAGNOSTIC DATA: Laboratory data as follows. . Alkaline phosphatase is 1009. Other LFTs were noted, AST was 72 and ALT 48. Total bilirubin was 0.8. Creatinine is 6.4. White count 4.5, hemoglobin 7.9, and platelet count is 180. Hepatitis screen was negative. Abdominal ultrasound I believe was ordered. Chest x-ray shows right midlung infiltrate that was on subsequent chest x-ray increased. Sputum culture is pending. Blood culture is negative. Influenza screen negative. ASSESSMENT AND PLAN: 1. The patient has pneumonia likely community-acquired versus aspiration healthcare-acquired pneumonia. I believe he has been hospitalized recently or previously. At this time, continue Zosyn and vancomycin. The patient also has left foot gangrene, left foot fourth digit gangrene, and left hand fourth digit gangrene. The patient has multiple other wounds. Continue vancomycin and Zosyn. Podiatry and Surgery are following the patient, may need amputation. Further workup per them including possible angiogram and revascularization and also again possible debridement and amputation may be needed. Continue vancomycin and Zosyn. Check followup labs, x-rays, and sputum culture. Blood culture is negative today. 2. End-stage renal disease, on hemodialysis. 3. Anemia. 4. Elevated creatinine. 5. Hypoxic respiratory insufficiency. 6. Breathing treatments. 7. Diabetes. 8. Hypertension. 9. Hyperlipidemia. 10. Blood sugar and blood pressure treatment per primary. 11. Hypertensive renal disease. 12. Diabetic nephropathy. 13. Elevated alkaline phosphatase, but bilirubin is normal. Ultrasound has been ordered. 14. Elevated liver function tests. 15. Hyperlipidemia. 16. Case discussed with Dr. Arreola. 17. Allergies to NSAIDs. 18. Family history is noncontributory. 19. MAR is noted. 20. Case was discussed with RN. 21. Social history is negative. 22. Continue treatment per primary consultants. 23. Notes and records were noted. 24. Orders were entered. Jose F Alfaro M.D. DR: Shona JOB#: [id number] CC:
[2017-07-30] MEDS: Epogen (for ESRD on dialysis) SUBQ SCH (22:09)
[2017-07-31] MEDS: Piperacillin/Tazobactam 2.25 GM in NS 55 ML IVPB SCH ×2 (00:10→08:55)
[2017-07-31 00:30] VITALS: BP 136/82
[2017-07-31 03:33] VITALS: BP 130/74
[2017-07-31] MEDS: NovoLOG Insulin Flexpen SUBQ SCH ×3 (05:52→16:30)
[2017-07-31 06:43] LABS: HEMOGLOBIN 7.8 G/DL (14.2-18.0); MEAN CORPUSCULAR VOLUME 87 FL (80-99); PLATELET COUNT 193 K/UL (150-450); RED BLOOD COUNT 2.85 M/UL (4.70-6.10); RED CELL DISTRIBUTION WIDTH 18.4 % (11.6-14.8); WHITE BLOOD COUNT 3.8 K/UL (4.8-10.8)
[2017-07-31 07:13] LABS: ANION GAP 11 mmol/L (5-15); BLOOD UREA NITROGEN 57 mg/dL (7-18); CALCIUM 7.8 MG/DL (8.5-10.1); CARBON DIOXIDE 29 MMOL/L (21-32); CHLORIDE 94 MMOL/L (98-107); CREATININE 5.7 MG/DL (0.55-1.30); POTASSIUM 3.4 MMOL/L (3.5-5.1); SODIUM 134 MMOL/L (136-145)
[2017-07-31 08:00] VITALS: BP 149/78
--- NOTE | 2017-07-31 08:27 | General Progress Note ---
Assessment/Plan Problem List: (1) Sepsis Assessment & Plan: Fever to 100.9, tachycardia ICD Codes: A41.9 - Sepsis, unspecified organism SNOMED: 57855844 (2) Acute respiratory failure with hypoxia ICD Codes: J96.01 - Acute respiratory failure with hypoxia SNOMED: 88733473, 796177237 (3) HCAP (healthcare-associated pneumonia) ICD Codes: J18.9 - Pneumonia, unspecified organism SNOMED: 785303751 (4) Acute on chronic diastolic (congestive) heart failure ICD Codes: I50.33 - Acute on chronic diastolic (congestive) heart failure SNOMED: 17674246, 904668972 (5) Hyperkalemia ICD Codes: E87.5 - Hyperkalemia SNOMED: 30653214 (6) ESRD on hemodialysis ICD Codes: N18.6 - End stage renal disease; Z99.2 - Dependence on renal dialysis SNOMED: 81859358, 519035348 (7) HTN (hypertension) ICD Codes: I10 - Essential (primary) hypertension SNOMED: 02434577 (8) HLD (hyperlipidemia) ICD Codes: E78.5 - Hyperlipidemia, unspecified SNOMED: 09824395 (9) Insulin dependent type 2 diabetes mellitus Assessment & Plan: A1C 7.5 ICD Codes: E11.9 - Type 2 diabetes mellitus without complications; Z79.4 - halfway (current) use of insulin SNOMED: 793510958 (10) Diabetic nephropathy ICD Codes: E11.21 - Type 2 diabetes mellitus with diabetic nephropathy SNOMED: 17192768, 275654787 (11) Gangrene of left foot ICD Codes: I96 - Gangrene, not elsewhere classified SNOMED: 73939650708759038 (12) History of right above knee amputation ICD Codes: Z89.611 - Acquired absence of right leg above knee SNOMED: 820224493 (13) Sacral unstageable/4 pressure ulcer (14) R ischial tuberosity stage 3 resolving with scar tissue (15) Left foot 1st-5th toe extending to plantar of foot gangrene (16) Left 4th finger gangrene (17) Hyponatremia ICD Codes: E87.1 - Hypo-osmolality and hyponatremia SNOMED: 79329711 (18) Severe peripheral vascular disease (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 Pt is hesitant to proceed. States he was recently seen at [facility] and has follow-up with them Check arterial duplex--shows L anterior tibial artery occlusion Vascular surgery consulted who recommends angiogram but pt states that he had angiogram at [facility] 2 weeks ago and wishes to follow-up there Cont wound care EPO per renal Cont SNF meds Pain control, bowel regimen Supportive care DVT Prophylaxis: HSQ Code Status: Full Hospital Classification Declaration: Based on this initial evaluation, and depending on the patient's clinical course, I anticipate that this patient will require hospitalization for 1-2 days for HCAP, hypoxia and close respiratory/ hemodynamic monitoring. Disposition: Once the patient is stable to leave the hospital, I anticipate the patient will likely be discharged to the following environment: back to SNF Discussed with patient/family, nursing staff, SW/CM, pulm, renal, ID, surgery, podiatry regarding clinical status, treatment course, and disposition planning. Time of note may not reflect time of encounter. Subjective Date patient seen: Jul 30, 2017 Time patient seen: 13:20 ROS Limited/Unobtainable: No Constitutional: Reports: no symptoms HEENT: Reports: no symptoms Cardiovascular: Reports: no symptoms Respiratory: Reports: cough, shortness of breath Gastrointestinal/Abdominal: Reports: no symptoms Genitourinary: Reports: no symptoms Neurologic/Psychiatric: Reports: no symptoms Endocrine: Reports: no symptoms Hematologic/Lymphatic: Reports: no symptoms Allergies: Coded Allergies: NSAIDS (NON-STEROIDAL ANTI-INFLAMMA (Verified Allergy, Unknown, 07/27/17) Subjective No acute o/n events Weaned off BiPAP Cont on venturi mask Arterial duplex w/ concern for occlusion of L anterior tibial artery. Vascular surgery consulted Hgb down to 7.9, no active bleeding Venturi mask. SOB and cough slowly improving. Denies f/c, n/v, d/c, chest pain Objective Last 24 Hour Vital Signs Date Time Temp Pulse Resp B/P (MAP) Pulse Ox O2 Delivery O2 Flow Rate FiO2 07/31/17 07:40 Venturi Mask 12.0 50 07/31/17 07:40 97 Venturi Mask 12.0 50 07/31/17 07:40 72 18 Venturi Mask 12.0 50 07/31/17 04:20 Room Air 07/31/17 03:33 97.3 70 20 130/74 96 Room Air 97.3 07/31/17 00:36 Venturi Mask 07/31/17 00:30 97.9 76 20 136/82 95 Room Air 97.9 07/30/17 23:14 97.5 07/30/17 21:26 97.5 07/30/17 20:47 97.5 07/30/17 20:00 Venturi Mask 07/30/17 19:42 Venturi Mask 12.0 07/30/17 19:39 97.5 81 20 152/76 97 Room Air 97.5 07/30/17 19:02 97 Venturi Mask 14.0 55 07/30/17 19:02 75 20 Venturi Mask 14.0 55 07/30/17 19:02 Venturi Mask 14.0 55 07/30/17 16:00 96.4 71 19 127/78 100 96.4 07/30/17 11:52 97.5 77 25 141/77 91 97.5 07/30/17 09:01 74 148/82 Intake and Output 07/30/17 07/31/17 19:00 07:00 Intake Total 120 ml 55 ml Output Total 450 ml Balance 120 ml -395 ml Intake Oral 120 ml IV Total 55 ml Output Urine Total 450 ml # Voids 5 Laboratory Tests 07/31/17 05:20: White Blood Count 3.8L, Red Blood Count 2.85L, Hemoglobin 7.8L, Hematocrit 25.0L , Mean Corpuscular Volume 87, Mean Corpuscular Hemoglobin 27.3, Mean Corpuscular Hemoglobin Concent 31.2L, Red Cell Distribution Width 18.4H, Platelet Count 193, Mean Platelet Volume 7.3, Neutrophils (%) (Auto) , Lymphocytes (%) (Auto) , Monocytes (%) (Auto) , Eosinophils (%) (Auto) , Basophils (%) (Auto) , Neutrophils % (Manual) [Pending], Lymphocytes % (Manual) [Pending], Platelet Estimate [Pending], Platelet Morphology [Pending], Sodium Level 134L, Potassium Level 3.4L, Chloride Level 94L, Carbon Dioxide Level 29, Anion Gap 11, Blood Urea Nitrogen 57H, Creatinine 5.7H, Estimat Glomerular Filtration Rate 12.2, Glucose Level 77, Calcium Level 7.8L Height (Feet): 6 Height (Inches): 1.00 Weight (Pounds): 200 Objective General Appearance: normal inspection, awake, alert Head: atraumatic ENT: normal ENT inspection, hearing grossly normal, normal voice Neck: normal inspection, full range of motion, supple, no bony tend Respiratory:+rhonchi b/l Cardiovascular: regular rate, rhythm, edema Gastrointestinal: normal inspection, normal bowel sounds, non tender, soft Genitourinary: no CVA tenderness Musculoskeletal: normal inspection, back normal, swelling - amputation Neurologic: normal inspection, alert, responsive, speech normal Ext: +R AKA, L foot with 1st-5th toes w/ e/o gangrene extending to plantar foot Maxwell Lin M.D. Jul 31, 2017 08:26
--- NOTE | 2017-07-31 08:31 | Diagnostic Imaging Report ---
Indication: Abdominal pain, history of peripheral vascular disease Technique: Grayscale and duplex images of the abdominal aorta Comparison: none Findings: Normal caliber abdominal aorta. Normal Doppler signal. No evidence of aneurysm. No gross sonographic evidence of dissection. No evidence of proximal iliac artery aneurysm Incidental note is made of ascites fluid Impression: No evidence of abdominal aortic aneurysm Incidental finding of ascites
[2017-07-31] MEDS: Morphine Sulfate 2mg/ml Inj IVP PRN ×2 (08:54→15:17)
[2017-07-31] MEDS: Renvela 800mg Pkt ORAL SCH ×2 (08:55→12:39)
[2017-07-31] MEDS: Nephrovite tab (Rena-Vite) ORAL SCH (08:55)
[2017-07-31] MEDS: Heparin 5000 units/ml inj SUBQ SCH (08:57)
[2017-07-31] MEDS: Betadine 10% Oint 30gm TOPIC SCH (08:59)
--- NOTE | 2017-07-31 11:07 | General Surgery Progress Note ---
General Surgery-Progress Note Subjective Symptoms: improved Additional Comments doing well. no complaints. no n/v/f/c. Objective Last 24 Hour Vital Signs Date Time Temp Pulse Resp B/P (MAP) Pulse Ox O2 Delivery O2 Flow Rate FiO2 07/31/17 09:24 97.3 07/31/17 08:55 72 130/74 07/31/17 08:54 97.3 07/31/17 08:00 96.8 69 19 149/78 97 Nasal Cannula 2.0 96.8 07/31/17 07:40 Venturi Mask 12.0 50 07/31/17 07:40 97 Venturi Mask 12.0 50 07/31/17 07:40 72 18 Venturi Mask 12.0 50 07/31/17 04:20 Room Air 07/31/17 03:33 97.3 70 20 130/74 96 Room Air 97.3 07/31/17 00:36 Venturi Mask 07/31/17 00:30 97.9 76 20 136/82 95 Room Air 97.9 07/30/17 23:14 97.5 07/30/17 20:47 97.5 07/30/17 20:00 Venturi Mask 07/30/17 19:42 Venturi Mask 12.0 07/30/17 19:39 97.5 81 20 152/76 97 Room Air 97.5 07/30/17 19:02 97 Venturi Mask 14.0 55 07/30/17 19:02 75 20 Venturi Mask 14.0 55 07/30/17 19:02 Venturi Mask 14.0 55 07/30/17 16:00 96.4 71 19 127/78 100 96.4 07/30/17 11:52 97.5 77 25 141/77 91 97.5 I&O Intake and Output 07/30/17 07/31/17 19:00 07:00 Intake Total 120 ml 55 ml Output Total 450 ml Balance 120 ml -395 ml Intake Oral 120 ml IV Total 55 ml Output Urine Total 450 ml # Voids 5 Dressing: dry Wound: dry Drains: none Cardiovascular: RSR Respiratory: clear Abdomen: soft, flat, non-tender Extremities: cyanosis Laboratory Tests Test 07/31/17 05:20 White Blood Count 3.8 K/UL (4.8-10.8) L Red Blood Count 2.85 M/UL (4.70-6.10) L Hemoglobin 7.8 G/DL (14.2-18.0) L Hematocrit 25.0 % (42.0-52.0) L Mean Corpuscular Volume 87 FL (80-99) Mean Corpuscular Hemoglobin 27.3 PG (27.0-31.0) Mean Corpuscular Hemoglobin Concent 31.2 G/DL (32.0-36.0) L Red Cell Distribution Width 18.4 % (11.6-14.8) H Platelet Count 193 K/UL (150-450) Mean Platelet Volume 7.3 FL (6.5-10.1) Neutrophils (%) (Auto) % (45.0-75.0) Lymphocytes (%) (Auto) % (20.0-45.0) Monocytes (%) (Auto) % (1.0-10.0) Eosinophils (%) (Auto) % (0.0-3.0) Basophils (%) (Auto) % (0.0-2.0) Differential Total Cells Counted 100 Neutrophils % (Manual) 73 % (45-75) Lymphocytes % (Manual) 24 % (20-45) Monocytes % (Manual) 2 % (1-10) Eosinophils % (Manual) 1 % (0-3) Basophils % (Manual) 0 % (0-2) Band Neutrophils 0 % (0-8) Platelet Estimate Adequate Platelet Morphology Normal Hypochromasia 1+ Anisocytosis 1+ Sodium Level 134 MMOL/L (136-145) L Potassium Level 3.4 MMOL/L (3.5-5.1) L Chloride Level 94 MMOL/L (98-107) L Carbon Dioxide Level 29 MMOL/L (21-32) Anion Gap 11 mmol/L (5-15) Blood Urea Nitrogen 57 mg/dL (7-18) H Creatinine 5.7 MG/DL (0.55-1.30) H Estimat Glomerular Filtration Rate 12.2 mL/min (>60) Glucose Level 77 MG/DL (74-106) Calcium Level 7.8 MG/DL (8.5-10.1) L Assessment Additional Comments 61M with multiple wounds as noted below #1 Sacral unstageable/4 pressure ulcer #2 right ischial tuberosity stage 3 resolving with scar tissue #3 right BKA scattered scabs . #4 left anterior lower leg scab. #5 Left foot 1st,2nd,3rd,4th,5th toe extending to plantar of foot gangrene #6 left 4th finger gangrene sacral wound without active infection. keep off wound and turn q2h. continue with dressing changes. right IT stable without need for debridement right BKA wound stable left foot distal gangrene noted. very poor perfusion and wounds at risk for infection. will likely need transmetatarsal amputation or BKA soon left 4th finger gangrene with poor perfusion and at risk for worsening infection. should have amputation as well. needs angio and amputation. not emergency but should be cared for sooner than later. appreciate Vascular input. discussed wounds and care with patient. he states that he had his right BKA at [place] and is scheduled to have left TMA at [facility] in a few weeks. if this is the case, wounds stable and can do that as desired. if desired can address wounds here. currently cont with dressings. will follow with recs. Plan Problems: (1) Gangrene of left foot (2) Sacral unstageable/4 pressure ulcer (3) R ischial tuberosity stage 3 resolving with scar tissue (4) Left 4th finger gangrene Cooper Castaneda Jul 31, 2017 11:07
[2017-07-31 12:00] VITALS: BP 140/77
--- NOTE | 2017-07-31 12:21 | Diagnostic Imaging Report ---
Indication: Cough Technique: One view of the chest Comparison: 07/30/2017 Findings: There is decreased density of the right mid and lower lung consolidation previously demonstrated, but infiltrate persists. There is interim resolution of previously demonstrated left perihilar infiltrate. The pleural spaces remain clear. Are remains enlarged Impression: Resolved left perihilar infiltrate Improved but persistent right middle lower lung infiltrate
--- NOTE | 2017-07-31 13:18 | General Progress Note ---
Assessment/Plan Assessment/Plan 1. Anemia, secondary to underlying chronic disease. Continue to closely monitor. Anemia workup has been ordered. Hemoglobin goal is above 7. --> anemia panel reviewed. Iron 12, TIBC 162, Ferritin 670, Vit B12 1559, Folate 49.6 2. Leukopenia, likely secondary to underlying infection. --> HIV/Hep panel negative --> S/P Abdomen US revealing ascites 3. Fourth left gangrene, remain on antibiotics, needing amputation. 4. Gangrene of the left foot, may need amputation with Dr. Giovany Noel. 5. End-stage renal failure, on hemodialysis three times a week. 6. Hyponatremia. Followup per bellows tester. Subjective Date patient seen: Jul 30, 2017 Constitutional: Denies: no symptoms, chills, diaphoresis, fever, malaise, weakness, other HEENT: Denies: no symptoms, eye pain, blurred vision, tearing, double vision, ear pain, ear discharge, nose pain, nose congestion, throat pain, throat swelling, mouth pain, mouth swelling, other Cardiovascular: Denies: no symptoms, chest pain, edema, irregular heart rate, lightheadedness, palpitations, syncope, other Respiratory: Denies: no symptoms, cough, orthopnea, shortness of breath, SOB with excertion, SOB at rest, sputum, stridor, wheezing, other Gastrointestinal/Abdominal: Denies: no symptoms, abdomen distended, abdominal pain, black stools, tarry stools, blood in stool, constipated, diarrhea, difficulty swallowing, nausea, poor appetite, poor fluid intake, rectal bleeding , vomiting, other Genitourinary: Denies: no symptoms, burning, discharge, frequency, flank pain, hematuria, incontinence, pain, urgency, other Neurologic/Psychiatric: Denies: no symptoms, anxiety, depressed, emotional problems, headache, numbness, paresthesia, pre-existing deficit, seizure, tingling, tremors, weakness, other Hematologic/Lymphatic: Reports: anemia Allergies: Coded Allergies: NSAIDS (NON-STEROIDAL ANTI-INFLAMMA (Verified Allergy, Unknown, 07/27/17) Subjective On antibiotics. S/P Abd US revealing ascites. Objective Last 24 Hour Vital Signs Date Time Temp Pulse Resp B/P (MAP) Pulse Ox O2 Delivery O2 Flow Rate FiO2 07/31/17 12:43 97.3 3/15/18 09:24 97.3 07/31/17 08:55 72 130/74 07/31/17 08:54 97.3 07/31/17 08:00 96.8 69 19 149/78 97 Nasal Cannula 2.0 96.8 07/31/17 07:40 Venturi Mask 12.0 50 07/31/17 07:40 97 Venturi Mask 12.0 50 07/31/17 07:40 72 18 Venturi Mask 12.0 50 07/31/17 04:20 Room Air 07/31/17 03:33 97.3 70 20 130/74 96 Room Air 97.3 07/31/17 00:36 Venturi Mask 07/31/17 00:30 97.9 76 20 136/82 95 Room Air 97.9 07/30/17 23:14 97.5 07/30/17 20:47 97.5 07/30/17 20:00 Venturi Mask 07/30/17 19:42 Venturi Mask 12.0 07/30/17 19:39 97.5 81 20 152/76 97 Room Air 97.5 07/30/17 19:02 97 Venturi Mask 14.0 55 07/30/17 19:02 75 20 Venturi Mask 14.0 55 07/30/17 19:02 Venturi Mask 14.0 55 07/30/17 16:00 96.4 71 19 127/78 100 96.4 Intake and Output 07/30/17 07/31/17 19:00 07:00 Intake Total 120 ml 55 ml Output Total 450 ml Balance 120 ml -395 ml Intake Oral 120 ml IV Total 55 ml Output Urine Total 450 ml # Voids 5 Laboratory Tests 07/31/17 05:20: White Blood Count 3.8L, Red Blood Count 2.85L, Hemoglobin 7.8L, Hematocrit 25.0L , Mean Corpuscular Volume 87, Mean Corpuscular Hemoglobin 27.3, Mean Corpuscular Hemoglobin Concent 31.2L, Red Cell Distribution Width 18.4H, Platelet Count 193, Mean Platelet Volume 7.3, Neutrophils (%) (Auto) , Lymphocytes (%) (Auto) , Monocytes (%) (Auto) , Eosinophils (%) (Auto) , Basophils (%) (Auto) , Differential Total Cells Counted 100, Neutrophils % ( Manual) 73, Lymphocytes % (Manual) 24, Monocytes % (Manual) 2, Eosinophils % ( Manual) 1, Basophils % (Manual) 0, Band Neutrophils 0, Platelet Estimate Adequate, Platelet Morphology Normal, Hypochromasia 1+, Anisocytosis 1+, Sodium Level 134L, Potassium Level 3.4L, Chloride Level 94L, Carbon Dioxide Level 29, Anion Gap 11, Blood Urea Nitrogen 57H, Creatinine 5.7H, Estimat Glomerular Filtration Rate 12.2, Glucose Level 77, Calcium Level 7.8L Height (Feet): 6 Height (Inches): 1.00 Weight (Pounds): 200 General Appearance: confused Respiratory/Chest: decreased breath sounds Abdomen: soft Alexandre Chanel Jul 31, 2017 13:18
[2017-07-31] MEDS ORDERED: LEVAQUIN500 MG ORAL (15:12)
[2017-07-31] MEDS ORDERED: AMOX TR-K CLV1 EAC1 ORAL ×2 (15:12)
--- NOTE | 2017-07-31 15:14 | Discharge Instructions ---
Discharge Instructions Discharge Instructions Follow up with: Primary care doctor, surgery in 1 week Call MD/Return to Hospital if: fevers/chills, SOB, chest pain Resume Normal Activity?: Yes Activity: resume normal activities Special Instructions Cont levaquin + augmetin x 6 days. Extra augmentin dose to be given after each dialysis session For Congestive Heart Failure Reminder Report to your physician any weight gain of 5 pounds or more in one week. Maxwell Lin M.D. Jul 31, 2017 15:13
[2017-07-31 16:00] VITALS: BP 126/71
[2017-07-31] MEDS: Albuterol/Ipratropium 3ml neb HHN PRN (16:16)
--- NOTE | 2017-07-31 16:54 | Nephrology Progress Note ---
Assessment/Plan Plan Sepsis _ IV Abx ESRD - HD done yesterday. Pt needs Vascular w/u. DC planning noted. Subjective Subjective No new c/o Objective Objective Last 24 Hour Vital Signs Date Time Temp Pulse Resp B/P (MAP) Pulse Ox O2 Delivery O2 Flow Rate FiO2 07/31/17 16:29 68 16 94 Room Air 21 07/31/17 16:16 71 16 95 Nasal Cannula 2.0 28 07/31/17 16:00 96.8 66 19 126/71 96 96.8 07/31/17 15:47 97.3 07/31/17 15:17 97.3 07/31/17 13:42 97.3 07/31/17 12:43 97.3 07/31/17 12:00 98.0 70 20 140/77 98 Room Air 98.0 07/31/17 08:55 72 130/74 07/31/17 08:54 97.3 07/31/17 08:00 96.8 69 19 149/78 97 Nasal Cannula 2.0 96.8 07/31/17 07:40 Venturi Mask 12.0 50 07/31/17 07:40 97 Venturi Mask 12.0 50 07/31/17 07:40 72 18 Venturi Mask 12.0 50 07/31/17 04:20 Room Air 07/31/17 03:33 97.3 70 20 130/74 96 Room Air 97.3 07/31/17 00:36 Venturi Mask 07/31/17 00:30 97.9 76 20 136/82 95 Room Air 97.9 07/30/17 20:47 97.5 07/30/17 20:00 Venturi Mask 07/30/17 19:42 Venturi Mask 12.0 07/30/17 19:39 97.5 81 20 152/76 97 Room Air 97.5 07/30/17 19:02 97 Venturi Mask 14.0 55 07/30/17 19:02 75 20 Venturi Mask 14.0 55 07/30/17 19:02 Venturi Mask 14.0 55 Intake and Output 07/30/17 07/31/17 18:59 06:59 Intake Total 120 ml 55 ml Output Total 450 ml Balance 120 ml -395 ml Intake Oral 120 ml IV Total 55 ml Output Urine Total 450 ml # Voids 5 Laboratory Tests 07/31/17 05:20: White Blood Count 3.8L, Red Blood Count 2.85L, Hemoglobin 7.8L, Hematocrit 25.0L , Mean Corpuscular Volume 87, Mean Corpuscular Hemoglobin 27.3, Mean Corpuscular Hemoglobin Concent 31.2L, Red Cell Distribution Width 18.4H, Platelet Count 193, Mean Platelet Volume 7.3, Neutrophils (%) (Auto) , Lymphocytes (%) (Auto) , Monocytes (%) (Auto) , Eosinophils (%) (Auto) , Basophils (%) (Auto) , Differential Total Cells Counted 100, Neutrophils % ( Manual) 73, Lymphocytes % (Manual) 24, Monocytes % (Manual) 2, Eosinophils % ( Manual) 1, Basophils % (Manual) 0, Band Neutrophils 0, Platelet Estimate Adequate, Platelet Morphology Normal, Hypochromasia 1+, Anisocytosis 1+, Sodium Level 134L, Potassium Level 3.4L, Chloride Level 94L, Carbon Dioxide Level 29, Anion Gap 11, Blood Urea Nitrogen 57H, Creatinine 5.7H, Estimat Glomerular Filtration Rate 12.2, Glucose Level 77, Calcium Level 7.8L Height (Feet): 6 Height (Inches): 1.00 Weight (Pounds): 200 Objective CV RR Lungs CTA Abd SNT. BS + E Rt BKA dressed. Lt. Foot dressed Rick Andersen MD Jul 31, 2017 16:54
[2017-07-31] MEDS ORDERED: NS 275ml ONE (17:59)
--- NOTE | 2017-07-31 21:34 | Cardiology Report ---
APPROVED REPORT EKG Measurement Heart [id number] Atrial fibrillation Low voltage QRS Cannot rule out Anterior infarct, age undetermined Abnormal ECG
--- NOTE | 2017-07-31 22:15 | Pulmonology Progress Note ---
Assessment/Plan Problems: (1) Acute respiratory failure (2) Pneumonia (3) ESRD (end stage renal disease) (4) Diabetes mellitus (5) History of right above knee amputation Assessment/Plan improving continue abx check sputum HD prn BIPAP dc planning for today Subjective ROS Limited/Unobtainable: No Allergies: Coded Allergies: NSAIDS (NON-STEROIDAL ANTI-INFLAMMA (Verified Allergy, Unknown, 07/27/17) Objective Last 24 Hour Vital Signs Date Time Temp Pulse Resp B/P (MAP) Pulse Ox O2 Delivery O2 Flow Rate FiO2 07/31/17 16:29 68 16 94 Room Air 21 07/31/17 16:16 71 16 95 Nasal Cannula 2.0 28 07/31/17 16:00 96.8 66 19 126/71 96 96.8 07/31/17 15:47 97.3 07/31/17 15:17 97.3 07/31/17 13:42 97.3 07/31/17 12:43 97.3 07/31/17 12:00 98.0 70 20 140/77 98 Room Air 98.0 07/31/17 08:55 72 130/74 07/31/17 08:54 97.3 07/31/17 08:00 96.8 69 19 149/78 97 Nasal Cannula 2.0 96.8 07/31/17 07:40 Venturi Mask 12.0 50 07/31/17 07:40 97 Venturi Mask 12.0 50 07/31/17 07:40 72 18 Venturi Mask 12.0 50 07/31/17 04:20 Room Air 07/31/17 03:33 97.3 70 20 130/74 96 Room Air 97.3 07/31/17 00:36 Venturi Mask 07/31/17 00:30 97.9 76 20 136/82 95 Room Air 97.9 Intake and Output 07/30/17 07/31/17 19:00 07:00 Intake Total 120 ml 55 ml Output Total 450 ml Balance 120 ml -395 ml Intake Oral 120 ml IV Total 55 ml Output Urine Total 450 ml # Voids 5 Objective General Appearance: cachectic HEENT: normocephalic, atraumatic, anicteric Respiratory/Chest: chest wall non-tender, + rhonchi Breasts: no masses Cardiovascular: normal peripheral pulses Abdomen: normal bowel sounds Genitourinary: normal external genitalia Laboratory Tests 07/31/17 05:20: White Blood Count 3.8L, Red Blood Count 2.85L, Hemoglobin 7.8L, Hematocrit 25.0L , Mean Corpuscular Volume 87, Mean Corpuscular Hemoglobin 27.3, Mean Corpuscular Hemoglobin Concent 31.2L, Red Cell Distribution Width 18.4H, Platelet Count 193, Mean Platelet Volume 7.3, Neutrophils (%) (Auto) , Lymphocytes (%) (Auto) , Monocytes (%) (Auto) , Eosinophils (%) (Auto) , Basophils (%) (Auto) , Differential Total Cells Counted 100, Neutrophils % ( Manual) 73, Lymphocytes % (Manual) 24, Monocytes % (Manual) 2, Eosinophils % ( Manual) 1, Basophils % (Manual) 0, Band Neutrophils 0, Platelet Estimate Adequate, Platelet Morphology Normal, Hypochromasia 1+, Anisocytosis 1+, Sodium Level 134L, Potassium Level 3.4L, Chloride Level 94L, Carbon Dioxide Level 29, Anion Gap 11, Blood Urea Nitrogen 57H, Creatinine 5.7H, Estimat Glomerular Filtration Rate 12.2, Glucose Level 77, Calcium Level 7.8L Dusty Dutta MD Jul 31, 2017 22:15
[2017-08-01] MEDS ORDERED: Levofloxacin 500mg tab ORAL SCH (09:00)
--- NOTE | 2017-08-01 13:23 | General Progress Note ---
Assessment/Plan Assessment/Plan 1. Anemia, secondary to underlying chronic disease. --> Continue to closely monitor. Hemoglobin goal is above 7. --> anemia panel reviewed. Iron 12, TIBC 162, Ferritin 670, Vit B12 1559, Folate 49.6 2. Leukopenia, likely secondary to underlying infection. --> HIV/Hep panel negative --> S/P Abdomen US revealing ascites 3. Fourth left gangrene, remain on antibiotics, needing amputation. 4. Gangrene of the left foot, may need amputation with Dr. Giovany Noel. 5. End-stage renal failure, on hemodialysis three times a week. 6. Hyponatremia. Followup per commercial glazier. Subjective Date patient seen: Jul 31, 2017 Constitutional: Denies: no symptoms, chills, diaphoresis, fever, malaise, weakness, other HEENT: Denies: no symptoms, eye pain, blurred vision, tearing, double vision, ear pain, ear discharge, nose pain, nose congestion, throat pain, throat swelling, mouth pain, mouth swelling, other Cardiovascular: Denies: no symptoms, chest pain, edema, irregular heart rate, lightheadedness, palpitations, syncope, other Respiratory: Denies: no symptoms, cough, orthopnea, shortness of breath, SOB with excertion, SOB at rest, sputum, stridor, wheezing, other Gastrointestinal/Abdominal: Denies: no symptoms, abdomen distended, abdominal pain, black stools, tarry stools, blood in stool, constipated, diarrhea, difficulty swallowing, nausea, poor appetite, poor fluid intake, rectal bleeding , vomiting, other Genitourinary: Denies: no symptoms, burning, discharge, frequency, flank pain, hematuria, incontinence, pain, urgency, other Neurologic/Psychiatric: Denies: no symptoms, anxiety, depressed, emotional problems, headache, numbness, paresthesia, pre-existing deficit, seizure, tingling, tremors, weakness, other Allergies: Coded Allergies: NSAIDS (NON-STEROIDAL ANTI-INFLAMMA (Verified Allergy, Unknown, 07/27/17) Subjective On antibiotics. No acute distress. Pending DC. Objective Last 24 Hour Vital Signs Date Time Temp Pulse Resp B/P (MAP) Pulse Ox O2 Delivery O2 Flow Rate FiO2 07/31/17 16:29 68 16 94 Room Air 21 07/31/17 16:16 71 16 95 Nasal Cannula 2.0 28 07/31/17 16:00 96.8 66 19 126/71 96 96.8 07/31/17 15:47 97.3 07/31/17 15:17 97.3 07/31/17 13:42 97.3 Intake and Output 07/31/17 08/01/17 19:00 07:00 Intake Total 55 ml Balance 55 ml IV Total 55 ml Height (Feet): 6 Height (Inches): 1.00 Weight (Pounds): 200 Alexandre Chanel MD Aug 01, 2017 13:23
--- NOTE | 2017-08-02 09:45 | Consultation ---
DATE OF CONSULTATION: 07/29/2017 REQUESTING PHYSICIAN: Maxwell Lin M.D. CONSULTING PHYSICIAN: Giovany Noel D.P.M. REASON FOR CONSULTATION: Gangrene of the left foot. HISTORY OF PRESENT ILLNESS: The patient is a 61-year-old male who was admitted to [facility] on 07/27/2017 for shortness of breath. The patient states that he has had a gangrenous toes for the past couple of months. He states that he is on track to have the surgery done at [facility], states that he did have some type of vascular procedure done through his groin at [facility] a month or two ago and says that the scar are healed. He wishes to return back to [facility] to have his continued care. Admits to left foot pain. No fever, chills, nausea, or vomiting. PAST MEDICAL HISTORY: Significant for hypertension, hyperlipidemia, end-stage renal disease on hemodialysis, and diabetes mellitus. ALLERGIES: He is allergic to nonsteroidal anti-inflammatory drugs. MEDICATIONS: Per MAR. FAMILY HISTORY: Noncontributory. SOCIAL HISTORY: The patient resides in a nursing home facility. REVIEW OF SYSTEMS: HEENT: The patient denies any headaches, blurred vision, or ringing in the ears. CARDIORESPIRATORY: The patient denies any chest pain or shortness of breath at this time. GENITOURINARY: The patient denies any urgency, frequency or burning upon urination, or hematuria. GASTROINTESTINAL: The patient denies any constipation, diarrhea or blood in stool. PHYSICAL EXAMINATION: VITAL SIGNS: Temperature is 98.2, pulse of 82, respirations 20, blood pressure 134/80, and saturating 92% on room air. EXTREMITIES: Lower extremity physical exam, the patient has a right BKA. Left foot, no pedal pulses noted. Foot is warm proximally and cold distally. There is gangrenous changes of the all the toes of the left foot. Mild malodor is noted. No discharge is noted. No induration or edema. DERMATOLOGICAL: As noted above. There is gangrenous changes of the toes up to the metatarsophalangeal joints. Heel is intact. The plantar sole is intact. There is mild malodor noted from the site. MUSCULOSKELETAL: Right BKA is noted. He has got 4/5 muscle strength noted on the left lower extremity and anterolateral and posterior muscle groups. NEUROLOGICAL: Protective threshold is diminished. LABORATORY DATA: White blood cell count is 4.7, hemoglobin and hematocrit 8.5 and 27.0, and platelet count 232. Potassium is 4.5, BUN is 78, and creatinine is 6.4. Hemoglobin A1c 7.5. Albumin is 2.0. Hepatitis panel is negative. IMAGING: No lower extremity imaging is noted. ASSESSMENT: 1. Gangrene of the left foot. 2. Peripheral arterial disease. 3. Diabetes mellitus. 4. Right [id number] amputation. 5. End-stage renal disease, on hemodialysis. PLAN: 1. Wound care was ordered consisting of pain in the forefoot with Betadine and covering with dry dressing. 2. Unilateral arterial ultrasound of the left lower extremity was ordered. 3. Continue antibiotics. 4. Appreciate general surgery recommendations. 5. We will follow. Thank you for the courtesy of this consultation, Dr. Arreola. Giovany Noel D.P.M. DR: SHERIF JOB#: [id number] CC: ELENO
--- NOTE | 2017-08-02 22:36 | Diagnostic Imaging Report ---
APPROVED REPORT CPT Code: 60790 Present Symptoms Comments: R/O DVT Hx of below the right knee amputation RIGHT LEG: Venous imaging reveals a patent deep venous system. There is no evidence of thrombus within the femoral, or popliteal segments. The greater saphenous vein is also within normal limits. Doppler indicates normal spontaneous flow within these segments. LEFT LEG: Venous imaging reveals a patent deep venous system. There is no evidence of thrombus within the femoral, popliteal or tibial segments. The greater saphenous vein is also within normal limits. Doppler indicates normal spontaneous flow within these segments.
--- NOTE | 2017-08-02 22:37 | Diagnostic Imaging Report ---
APPROVED REPORT CPT Code: 69466 Vascular Symptoms Comments: R/O occlusion Doppler Spectral Velocity Analysis RightLeft arteries. The Doppler spectral flow analysis indicates the degree of stenosis is minimal (20%) in the common carotid artery, mild (50%) in the internal carotid artery, (50%) in the external carotid artery. VERTEBRAL- The vertebral artery is patent, without evidence of stenosis or steal. VERTEBRAL - The vertebral artery is patent, without evidence of stenosis or steal. arteries. The Doppler spectral flow analysis indicates the degree of stenosis is minimal (10%) in the common carotid artery, mild (40%) in the internal carotid artery, and (40%) in the external carotid artery. VERTEBRAL- The vertebral artery is patent, without evidence of stenosis or steal. VERTEBRAL - The vertebral artery is patent, without evidence of stenosis or steal.
--- NOTE | 2017-08-02 22:39 | Diagnostic Imaging Report ---
APPROVED REPORT CPT Code: 81851 Symptoms PAD Comments: Gangrene Left foot Hx of BKA RLE LEFT LEG: Common femoral artery waveform analysis is within normal limits at rest. Color flow duplex sonography reveals calcification throughout the superficial femoral artery. There is no evidence of significant stenosis or occlusion within this segment. The tibioperoneal trunk is patent. The distal posterior, peroneal and dorsalis pedis arteries are also calcified. An occlusion is seen in the distal anterior tibial artery. The proximal anterior tibial artery is patent. The Doppler tibial artery waveform analysis is compatible with minimal ischemia at rest.
--- NOTE | 2017-08-05 22:36 | Discharge Summary ---
Discharge Summary Hospital Course Date of Admission Jul 27, 2017 at 21:14 Date of Discharge Jul 31, 2017 at 18:00 Admitting Diagnosis Acute hypoxic respiratory failure Reason for Hospitalization: Acute hypoxic respiratory failure HPI 61y/o male with pmh of HTN, HLD, ESRD on HD (MWF), DM2 who presents with increasing SOB. Pt states that has been having a bad cough and SOB for the past few days. Since he wasn't feeling well he missed his last dialysis on Friday. He had worsening SOB yesterday and thus presented to ER. C/o subjective fevers/ chills. Denies n/v, d/c, chest pain, abd pain. In ED pt noted to be hypoxic to 70% and was placed on NRB and then BiPAP. CXR w / concern for pneumonia. Given ceftriaxone and azithro. Labs notable for hyponatremia and hyperkalemia. Renal consulted for urgent dialysis. Consultations Pulmonology, Infectious disease, Podiatry, General surgery, Vascular surgery, Nephrology Hospital Course Pt was admitted to ICU on continuous BiPAP given acute hypoxic respiratory failure. He underwent urgent hemodialysis per nephrology. Pt was placed on broad spectrums antibiotics given sepsis likely secondary to HCAP. Pt also with evidence of CHF so he received dialysis for volume removal. Pt also noted to have gangrene of L foot. Vascular surgery consulted given arterial duplex showed L anterior tibial artery occlusion. Pt refused any procedures offered. He stated that he had recent angiogram at [facility] and wishes to follow-up there. Pt was continued on local wound care. Once O2 requirements improved, pt was transitioned to oral antibiotics on discharge back to SNF. Discharge physical exam: General Appearance: normal inspection, awake, alert Head: atraumatic ENT: normal ENT inspection, hearing grossly normal, normal voice Neck: normal inspection, full range of motion, supple, no bony tend Respiratory:+rhonchi b/l Cardiovascular: regular rate, rhythm, edema Gastrointestinal: normal inspection, normal bowel sounds, non tender, soft Genitourinary: no CVA tenderness Musculoskeletal: normal inspection, back normal, swelling - amputation Neurologic: normal inspection, alert, responsive, speech normal Ext: +R AKA, L foot with 1st-5th toes w/ e/o gangrene extending to plantar foot Discharge diagnoses: (1) Sepsis Assessment & Plan: Fever to 100.9, tachycardia ICD Codes: A41.9 - Sepsis, unspecified organism SNOMED: 72417535 (2) Acute respiratory failure with hypoxia ICD Codes: J96.01 - Acute respiratory failure with hypoxia SNOMED: 78027035, 163248996 (3) HCAP (healthcare-associated pneumonia) ICD Codes: J18.9 - Pneumonia, unspecified organism SNOMED: 323781191 (4) Acute on chronic diastolic (congestive) heart failure ICD Codes: I50.33 - Acute on chronic diastolic (congestive) heart failure SNOMED: 01891241, 383990729 (5) Hyperkalemia ICD Codes: E87.5 - Hyperkalemia SNOMED: 53590966 (6) ESRD on hemodialysis ICD Codes: N18.6 - End stage renal disease; Z99.2 - Dependence on renal dialysis SNOMED: 92821594, 006634293 (7) HTN (hypertension) ICD Codes: I10 - Essential (primary) hypertension SNOMED: 48559813 (8) HLD (hyperlipidemia) ICD Codes: E78.5 - Hyperlipidemia, unspecified SNOMED: 53232458 (9) Insulin dependent type 2 diabetes mellitus Assessment & Plan: A1C 7.5 ICD Codes: E11.9 - Type 2 diabetes mellitus without complications; Z79.4 - FPC (current) use of insulin SNOMED: 955525676 (10) Diabetic nephropathy ICD Codes: E11.21 - Type 2 diabetes mellitus with diabetic nephropathy SNOMED: 72686684, 428418140 (11) Gangrene of left foot ICD Codes: I96 - Gangrene, not elsewhere classified SNOMED: 77538918151881471 (12) History of right above knee amputation ICD Codes: Z89.611 - Acquired absence of right leg above knee SNOMED: 944681845 (13) Sacral unstageable/4 pressure ulcer (14) R ischial tuberosity stage 3 resolving with scar tissue (15) Left foot 1st-5th toe extending to plantar of foot gangrene (16) Left 4th finger gangrene (17) Hyponatremia ICD Codes: E87.1 - Hypo-osmolality and hyponatremia SNOMED: 96179582 (18) Severe peripheral vascular disease (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 (20) Leukopenia ICD Codes: D72.819 - Decreased white blood cell count, unspecified SNOMED: 75561396, 219468141 (21) Anemia of chronic disease ICD Codes: D63.8 - Anemia in other chronic diseases classified elsewhere Discharge Medications New Medications: Amoxicillin/Potassium Clav 500-125 Mg Tab* (Amox Tr-K Clv 500-125 Mg Tab*) 1 Each Tablet 500 MG ORAL Q24H for 6 Days, #6 TAB Amoxicillin/Potassium Clav 500-125 Mg Tab* (Amox Tr-K Clv 500-125 Mg Tab*) 1 Each Tablet 500 MG ORAL POSTHD for 6 Days, #3 TAB give after each dialysis session Levofloxacin* (Levaquin*) 500 Mg Tablet 500 MG ORAL Q48H for 6 Days, #3 TAB Continued Medications: Acetaminophen* (Acetaminophen 325MG Tablet*) 325 Mg Tablet 650 MG ORAL Q4H PRN for For Pain, TAB Amlodipine Besylate (Norvasc) 10 Mg Tablet 10 MG ORAL DAILY, TAB Atorvastatin Calcium* (Lipitor*) 80 Mg Tablet 80 MG ORAL BEDTIME, TAB Bisacodyl (Dulcolax) 10 Mg Supp.rect 10 MG RC PRN for Constipation, SUPP Furosemide* (Lasix*) 40 Mg Tablet 40 MG ORAL TWICE A DAY, TAB 0 Refills Hydralazine Hcl* (Hydralazine Hcl*) 100 Mg Tablet 100 MG ORAL EVERY 8 HOURS, TAB Hydrocodone Bit/Acetaminophen 5-325* ([place] 5-325*) 1 Each Tablet 1 TAB ORAL Q4H PRN for For Pain, TAB 0 Refills Insulin Regular, Human (Humulin R) 100 Unit/1 Ml Vial 0 SUBQ, VIAL Metoprolol Tartrate* (Metoprolol Tartrate*) 50 Mg Tablet 50 MG ORAL EVERY 12 HOURS, TAB 0 Refills Mineral Oil (Mineral Oil Enema) 133 Ml Enema 133 ML RC, EA Sennosides (Senna) 8.6 Mg Tablet 8.6 MG PO, TAB Sevelamer Carbonate* (Renvela*) 0.8 Gm Powd.pack 800 MG ORAL THREE TIMES A DAY, PACK Sorbitol (Sorbitol) 30 Ml Solution Unknown Dose PO, ML Valsartan (Diovan) 80 Mg Tab 160 MG ORAL DAILY, TAB Vitamin B Cmplx/Vit C/Folic AC (Nephro-Ambar Tablet) 0.8 Mg Tablet 1 TAB ORAL DAILY, #30 TAB 0 Refills Vitamin D (Vitamin D3) 400 Unit Tablet 1000 UNITS ORAL DAILY, TAB Discharge Condition Upon Discharge: stable Discharge Disposition Patient was discharged to SNF/Subacute Facility(03) Discharge Diagnoses: Discharge Instructions Discharge Instructions Follow up with: Primary care doctor, surgery in 1 week Call MD/Return to Hospital if: fevers/chills, SOB, chest pain Activity: resume normal activities Maxwell Lin M.D. Aug 05, 2017 22:36
== END 2017-07-31 18:00 | DRG 871 ==
LOC: EDBD 20:39 → EMR 21:10 → ICU 21:14 → EDBEDREQ 23:46 → EDBEDREQSVC 23:46 → EDBEDREQ 07-28 01:14 → 4W 07-28 19:05
PROC: 5A09357 Assistance with Respiratory Ventilation, Less than 24 Consecutive Hours, Continuous Positive Airway Pressure (ICD-10-PCS; principal; 2017-07-28)
PROC: 5A1D70Z Performance of Urinary Filtration, Intermittent, Less than 6 Hours Per Day (ICD-10-PCS; 2017-07-28)
PROC: 5A1D70Z Performance of Urinary Filtration, Intermittent, Less than 6 Hours Per Day (ICD-10-PCS; 2017-07-30)
DX: A41.9 Sepsis, unspecified organism (principal); J18.9 Pneumonia, unspecified organism; J96.01 Acute respiratory failure with hypoxia; I50.33 Acute on chronic diastolic (congestive) heart failure; L89.154 Pressure ulcer of sacral region, stage 4; I96 Gangrene, not elsewhere classified; L89.213 Pressure ulcer of right hip, stage 3; N18.6 End stage renal disease; I13.2 Hypertensive heart and chronic kidney disease with heart failure and with stage 5 chronic kidney disease, or end stage renal disease; E87.1 Hypo-osmolality and hyponatremia; Z99.2 Dependence on renal dialysis; E11.22 Type 2 diabetes mellitus with diabetic chronic kidney disease; Z79.4 Long term (current) use of insulin; E78.5 Hyperlipidemia, unspecified; Z88.6 Allergy status to analgesic agent; E87.5 Hyperkalemia; Z87.891 Personal history of nicotine dependence; D63.8 Anemia in other chronic diseases classified elsewhere; I77.89 Other specified disorders of arteries and arterioles; Z89.511 Acquired absence of right leg below knee; I77.1 Stricture of artery
CPT/HCPCS: 36415; 36600; 71045; 76705; 80048; 80053; 80061; 80076; 80202; 82378; 82550; 82553; 82607; 82728; 82746; 82803; 82962; 83010; 83036; 83540; 83550; 83605; 83735; 83880; 83921; 84100; 84439; 84443; 84484; 84550; 85007; 85025; 85044; 85060; 85384; 85610; 85730; 86705; 86709; 86710; 86803; 87040; 87081; 87340; 93005; 93306; 93880; 93926; 93970; 94640; 94660; 94664; 94760; 99291; J1815; J7620